=== PATIENT | male | born 1965 | race Caucasian/White ===

== ENCOUNTER 2018-03-12 22:42 | Emergency (ER) | payer MEDICARE ==
[~2018-03-12] VITALS: Ht 172.7 cm; Wt 124.7 kg
[~2018-03-12 22:42] MED LIST: ALBU90OI INH; ALBU90OI6 INH; ALPR.5; ALPR.5 PO; ARIP10 PO; ASPI81EC PO; ATEN100 PO; ATEN50 PO; BUDE6HFA; CEPH500 PO; CIPR500 PO; CLAR500 PO; CLIN300 PO; CLON.5; CLON.5 PO; CLON1 PO; CODGUAEL PO; CYCL10 PO; CYMBALTA; Cleocin HCl150 MG PO; Clonazepam1 MG PO; DIPATR PO; DRON5 PO; DULO60 PO; FAMO20 PO; FAMO40 PO; GUAI600T33 PO; HYDACE25S PR; HYDACE5 PO; HYDGUAL120 PO; HYDPAM25 PO; HYDR1TAB94 PO; IBUP600 PO; JENTADUETO PO; LIDO2L TOP; LITH300C PO; LORA1 PO; MARIJUANA; MULVITA PO; NIFE10 PO; OLAN10 PO; OLAN5 PO; OLEPTRO; ONDA4ODT MM; OSEL75CA PO; OXYACE5T PO; OXYACE7.5T PO; PERP4 PO; PRED20 PO; PROC10 PO; PROCODE120 PO; PROM25 PO; PROM25S PR; Pepcid20 MG PO; Permethrin60 GM; Prozac20 MG PO; RABE20; RANI150 PO; ROSU10TA PO; RXHYDGUAS PO; RXOXYACE PO; RXPROM25 PO; RXSULTRIDS PO; SITA100T2 PO; SULTRIDS PO; SYMBYAX PO; TRAM50 PO; TRAZ100 PO; TRAZ50 PO; TRIBENZOR; [UNRECOGNIZED DRUG - OTHER]; [UNRECOGNIZED DRUG - OTHER]; [UNRECOGNIZED DRUG - OTHER]
[2018-03-13 00:19] LABS: BASOPHILS ABSOLUTE AUTO 0.05 K/mm3 (0.00-0.23); BASOPHILS PERCENT AUTO 1 % (0-2); EOSINOPHILS ABSOLUTE AUTO 0.27 K/mm3 (0.00-0.68); EOSINOPHILS PERCENT AUTO 3 % (0-6); Hematocrit 42.2 % (37.0-53.0); Hemoglobin 13.9 g/dL (13.5-17.5); IMMATURE GRAN ABSOLUTE AUTO 0.04 K/mm3 (0.00-0.10); IMMATURE GRAN PERCENT AUTO 0 % (0-1); LYMPHOCYTES ABSOLUTE AUTO 3.52 K/mm3 (0.84-5.20); LYMPHOCYTES PERCENT AUTO 36 % (21-46); MONOCYTES ABSOLUTE AUTO 1.49 K/mm3 (0.16-1.47); MONOCYTES PERCENT AUTO 15 % (4-13); Mean Corpuscular HGB Conc 32.9 g/dL (31.5-36.5); Mean Corpuscular Volume 97 fL (80-100); Mean Platelet Volume 9.2 fL (9.1-12.4); NEUTROPHILS ABSOLUTE AUTO 4.53 K/mm3 (1.96-9.15); NEUTROPHILS PERCENT AUTO 46 % (41-73); Platelet Count 220 K/mm3 (150-400); RDW Coefficient Variation 12.1 % (11.7-14.2); RDW Standard Deviation 43.5 fL (35.1-46.3); Red Blood Cell Count 4.34 M/mm3 (4.30-5.90)
[2018-03-13] MEDS ORDERED: DOXE25 PO (00:32)
[2018-03-13] MEDS ORDERED: BUPR100 PO (00:32)
[2018-03-13 00:42] LABS: Alanine Aminotransfer (ALT/SGP 28 U/L (12-78); Albumin, Blood 3.1 g/dL (3.4-5.0); Albumin/Globulin Ratio 0.8 (0.8-1.8); Alk Phos 86 U/L (50-136); Anion Gap 8 mmol/L (6-16); Aspartate Aminotrans (AST/SGOT 15 U/L (12-37); Bilirubin, Total 0.2 mg/dL (0.1-1.0); Blood Urea Nitrogen 11 mg/dL (8-24); Bun/Creatinine Ratio 12.9 (12.0-20.0); CO2, Blood 25 mmol/L (21-32); Calcium, Blood 8.8 mg/dL (8.5-10.1); Chloride, Blood 109 mmol/L (98-108); Creatinine, Blood 0.85 mg/dL (0.60-1.20); Globulin, Blood 3.7 g/dL (2.2-4.0); Glomerular Filtration Rate >60 (60-); Glucose, Blood 156 mg/dL (70-99); Sodium, Blood 142 mmol/L (136-145); Total Protein, Blood 6.8 g/dL (6.4-8.2); Troponin I <0.015 ng/mL (0.000-0.040)
[2018-03-13] MEDS ORDERED: Prednisone50 MG PO (00:58)
[2018-03-13] MEDS ORDERED: Zithromax250 MG PO (00:58)
== END 2018-03-13 01:15 | disposition home or self-care (01) ==
LOC: ER 22:42
PROVIDERS: Emergency Medicine
DX: J44.1 Chronic obstructive pulmonary disease with (acute) exacerbation (principal); Z88.8 Allergy status to other drugs, medicaments and biological substances; Z88.6 Allergy status to analgesic agent; Z88.0 Allergy status to penicillin; Z79.899 Other long term (current) drug therapy; I10 Essential (primary) hypertension; F32.9 Major depressive disorder, single episode, unspecified; K21.9 Gastro-esophageal reflux disease without esophagitis
CPT/HCPCS: 36415; 71046; 80053; 84484; 85025; 93005; 93010; 94640; 96374; 99284-25; J2930

== ENCOUNTER 2018-09-23 10:53 | Emergency (ER) | payer MEDICARE ==
[~2018-09-23] VITALS: Ht 172.7 cm; Wt 117.9 kg
[~2018-09-23 10:53] MED LIST changes: +BUPR100 PO; +DOXE25 PO; +Prednisone50 MG PO; +Zithromax250 MG PO
[2018-09-23 11:24] LABS: BASOPHILS ABSOLUTE AUTO 0.06 K/mm3 (0.00-0.23); BASOPHILS PERCENT AUTO 0 % (0-2); EOSINOPHILS PERCENT AUTO 0 % (0-6); Hematocrit 48.1 % (37.0-53.0); Hemoglobin 16.2 g/dL (13.5-17.5); IMMATURE GRAN ABSOLUTE AUTO 0.23 K/mm3 (0.00-0.10); IMMATURE GRAN PERCENT AUTO 2 % (0-1); LYMPHOCYTES ABSOLUTE AUTO 1.47 K/mm3 (0.84-5.20); LYMPHOCYTES PERCENT AUTO 10 % (21-46); MONOCYTES PERCENT AUTO 3 % (4-13); Mean Corpuscular HGB 31.2 pg (26.0-34.0); Mean Corpuscular HGB Conc 33.7 g/dL (31.5-36.5); Mean Corpuscular Volume 93 fL (80-100); Mean Platelet Volume 8.8 fL (9.1-12.4); NEUTROPHILS ABSOLUTE AUTO 12.77 K/mm3 (1.96-9.15); NEUTROPHILS PERCENT AUTO 85 % (41-73); Platelet Count 268 K/mm3 (150-400); RDW Coefficient Variation 11.9 % (11.7-14.2); RDW Standard Deviation 40.9 fL (35.1-46.3); Red Blood Cell Count 5.19 M/mm3 (4.30-5.90); White Blood Cell Count 15.03 K/mm3 (4.00-11.30)
[2018-09-23 11:41] LABS: Alanine Aminotransfer (ALT/SGP 36 U/L (12-78); Albumin, Blood 3.9 g/dL (3.4-5.0); Albumin/Globulin Ratio 0.9 (0.8-1.8); Alk Phos 93 U/L (50-136); Anion Gap 9 mmol/L (6-16); Aspartate Aminotrans (AST/SGOT 15 U/L (12-37); Bilirubin, Total 0.5 mg/dL (0.1-1.0); Blood Urea Nitrogen 10 mg/dL (8-24); Bun/Creatinine Ratio 12.9 (12.0-20.0); CO2, Blood 24 mmol/L (21-32); Calcium, Blood 9.5 mg/dL (8.5-10.1); Chloride, Blood 105 mmol/L (98-108); Creatinine, Blood 0.77 mg/dL (0.60-1.20); Globulin, Blood 4.2 g/dL (2.2-4.0); Glomerular Filtration Rate >60 (60-); Glucose, Blood 208 mg/dL (70-99); Potassium, Blood 4.4 mmol/L (3.5-5.5); Sodium, Blood 138 mmol/L (136-145); Total Protein, Blood 8.1 g/dL (6.4-8.2)
[2018-09-23 12:07] LABS: Lithium <0.20 mmol/L (0.60-1.20)
[2018-09-23 12:43] LABS: Source, Urine Clean Catch
[2018-09-23 12:52] LABS: Bilirubin, Urine Neg (Neg); Blood, Urine 4+ (Neg); Glucose Qualitative, Urine 4+ (Neg); Ketones, Urine 3+ (Neg); Leukocyte Esterase, Urine Neg (Neg); Nitrite, Urine Neg (Neg); Protein, Urine 2+ (Neg); Urobilinogen, Urine NORM (Normal)
[2018-09-23 13:18] LABS: Appearance, Urine Clear (Clear); Color, Urine Yellow (P-Yellow)
[2018-09-23 13:23] LABS: Bacteria Not Seen /hpf; Squamous Epithelial Cells Not Seen /hpf (Few); White Blood Cells, Urine Not Seen /hpf (0-5)
[2018-09-23] MEDS ORDERED: Zofran4 MG PO (14:20)
== END 2018-09-23 14:40 | disposition home or self-care (01) ==
LOC: ER 10:53
PROVIDERS: Emergency Medicine
DX: K29.70 Gastritis, unspecified, without bleeding (principal); Z88.6 Allergy status to analgesic agent; Z88.0 Allergy status to penicillin; Z79.899 Other long term (current) drug therapy; Z79.52 Long term (current) use of systemic steroids; I10 Essential (primary) hypertension; F32.9 Major depressive disorder, single episode, unspecified; K21.9 Gastro-esophageal reflux disease without esophagitis; F20.9 Schizophrenia, unspecified; J44.9 Chronic obstructive pulmonary disease, unspecified
CPT/HCPCS: 36415; 74176; 80053; 80178; 81001; 83690; 85025; 93005; 93010; 96361; 96374; 99284-25; J2060; J7030

== ENCOUNTER → 2018-10-31 | Outpatient (CLI) | payer MEDICARE ==
[~2018-10-31] MED LIST changes: +Zofran4 MG PO
== END | disposition home or self-care (01) ==
LOC: LAB 14:15 → LAB SHORT 14:15
DX: L02.211 Cutaneous abscess of abdominal wall (principal)
CPT/HCPCS: 87070; 87075; 87077; 87186; 87205

== ENCOUNTER 2019-02-06 12:34 | Emergency (ER) | payer MEDICARE, OTHER ==
[~2019-02-06] VITALS: Ht 172.7 cm; Wt 127.0 kg
[2019-02-06 14:14] LABS: BASOPHILS ABSOLUTE AUTO 0.02 K/mm3 (0.00-0.23); BASOPHILS PERCENT AUTO 0 % (0-2); EOSINOPHILS ABSOLUTE AUTO 0.02 K/mm3 (0.00-0.68); EOSINOPHILS PERCENT AUTO 0 % (0-6); Hematocrit 46.5 % (37.0-53.0); Hemoglobin 15.5 g/dL (13.5-17.5); IMMATURE GRAN ABSOLUTE AUTO 0.02 K/mm3 (0.00-0.10); IMMATURE GRAN PERCENT AUTO 0 % (0-1); LYMPHOCYTES ABSOLUTE AUTO 2.13 K/mm3 (0.84-5.20); LYMPHOCYTES PERCENT AUTO 33 % (21-46); MONOCYTES PERCENT AUTO 22 % (4-13); Mean Corpuscular HGB 31.5 pg (26.0-34.0); Mean Corpuscular HGB Conc 33.3 g/dL (31.5-36.5); Mean Corpuscular Volume 95 fL (80-100); Mean Platelet Volume 9.2 fL (9.1-12.4); NEUTROPHILS ABSOLUTE AUTO 2.85 K/mm3 (1.96-9.15); NEUTROPHILS PERCENT AUTO 44 % (41-73); Platelet Count 183 K/mm3 (150-400); RDW Coefficient Variation 12.8 % (11.7-14.2); Red Blood Cell Count 4.92 M/mm3 (4.30-5.90); White Blood Cell Count 6.44 K/mm3 (4.00-11.30)
[2019-02-06 14:39] LABS: Alanine Aminotransfer (ALT/SGP 73 U/L (12-78); Albumin, Blood 3.8 g/dL (3.4-5.0); Alk Phos 96 U/L (50-136); Anion Gap 11 mmol/L (6-16); Aspartate Aminotrans (AST/SGOT 35 U/L (12-37); Bilirubin, Total 0.6 mg/dL (0.1-1.0); Blood Urea Nitrogen 16 mg/dL (8-24); CO2, Blood 23 mmol/L (21-32); Calcium, Blood 9.3 mg/dL (8.5-10.1); Chloride, Blood 104 mmol/L (98-108); Globulin, Blood 3.9 g/dL (2.2-4.0); Glomerular Filtration Rate >60 (60-); Glucose, Blood 221 mg/dL (70-99); Sodium, Blood 138 mmol/L (136-145); Total Protein, Blood 7.7 g/dL (6.4-8.2)
[2019-02-06] MEDS ORDERED: ALBU2.5V5 NEB (16:05)
[2019-02-06] MEDS ORDERED: Zithromax250 MG PO (16:05)
== END 2019-02-06 16:18 | disposition home or self-care (01) ==
LOC: ER 12:34
PROVIDERS: Physician Assistant
DX: J44.0 Chronic obstructive pulmonary disease with (acute) lower respiratory infection (principal); J20.9 Acute bronchitis, unspecified; J44.1 Chronic obstructive pulmonary disease with (acute) exacerbation; I10 Essential (primary) hypertension; F32.9 Major depressive disorder, single episode, unspecified; K21.9 Gastro-esophageal reflux disease without esophagitis; Z88.0 Allergy status to penicillin; Z88.6 Allergy status to analgesic agent; Z79.899 Other long term (current) drug therapy; Z79.52 Long term (current) use of systemic steroids
CPT/HCPCS: 36415; 71046; 80053; 84484; 85025; 93005; 93010; 94640; 94644; 99284-25

== ENCOUNTER 2019-08-01 06:07 | Emergency (ER) | payer OTHER ==
[~2019-08-01] VITALS: Ht 172.7 cm; Wt 120.2 kg
[~2019-08-01 06:07] MED LIST changes: +ALBU2.5V5 NEB
[2019-08-01] MEDS ORDERED: ATEN50 PO (06:42)
[2019-08-01] MEDS ORDERED: Lisinopril2.5 MG (06:42)
[2019-08-01] MEDS ORDERED: NEURONTIN300 MG PO (06:43)
[2019-08-01 07:19] LABS: BASOPHILS ABSOLUTE AUTO 0.05 K/mm3 (0.00-0.23); BASOPHILS PERCENT AUTO 1 % (0-2); EOSINOPHILS PERCENT AUTO 2 % (0-6); Hematocrit 45.9 % (37.0-53.0); Hemoglobin 14.8 g/dL (13.5-17.5); IMMATURE GRAN ABSOLUTE AUTO 0.07 K/mm3 (0.00-0.10); IMMATURE GRAN PERCENT AUTO 1 % (0-1); LYMPHOCYTES ABSOLUTE AUTO 2.55 K/mm3 (0.84-5.20); LYMPHOCYTES PERCENT AUTO 23 % (21-46); MONOCYTES ABSOLUTE AUTO 0.93 K/mm3 (0.16-1.47); MONOCYTES PERCENT AUTO 8 % (4-13); Mean Corpuscular HGB 31.4 pg (26.0-34.0); Mean Corpuscular HGB Conc 32.2 g/dL (31.5-36.5); Mean Corpuscular Volume 97 fL (80-100); Mean Platelet Volume 8.8 fL (9.1-12.4); NEUTROPHILS ABSOLUTE AUTO 7.22 K/mm3 (1.96-9.15); NEUTROPHILS PERCENT AUTO 66 % (41-73); Platelet Count 223 K/mm3 (150-400); RDW Standard Deviation 46.4 fL (35.1-46.3); Red Blood Cell Count 4.72 M/mm3 (4.30-5.90); White Blood Cell Count 11.02 K/mm3 (4.00-11.30)
[2019-08-01 07:33] LABS: Source, Urine Clean Catch
[2019-08-01 07:38] LABS: Bilirubin, Urine Neg (Neg); Blood, Urine 2+ (Neg); Glucose Qualitative, Urine 3+ (Neg); Ketones, Urine Neg (Neg); Leukocyte Esterase, Urine Neg (Neg); Nitrite, Urine Neg (Neg); Protein, Urine 1+ (Neg); Specific Gravity, Urine 1.025 (1.003-1.022); Urobilinogen, Urine NORM (Normal)
[2019-08-01 07:38] LABS: Alanine Aminotransfer (ALT/SGP 40 U/L (12-78); Albumin, Blood 3.4 g/dL (3.4-5.0); Alk Phos 71 U/L (50-136); Anion Gap 5 mmol/L (6-16); Aspartate Aminotrans (AST/SGOT 17 U/L (12-37); Bilirubin, Total 0.3 mg/dL (0.1-1.0); Blood Urea Nitrogen 14 mg/dL (8-24); Bun/Creatinine Ratio 17.6 (12.0-20.0); CO2, Blood 27 mmol/L (21-32); Calcium, Blood 8.2 mg/dL (8.5-10.1); Chloride, Blood 109 mmol/L (98-108); Globulin, Blood 3.3 g/dL (2.2-4.0); Glomerular Filtration Rate >60 (60-); Glucose, Blood 195 mg/dL (70-99); Potassium, Blood 3.9 mmol/L (3.5-5.5); Sodium, Blood 141 mmol/L (136-145); Total Protein, Blood 6.7 g/dL (6.4-8.2)
[2019-08-01 07:53] LABS: Appearance, Urine Clear (Clear); Color, Urine Yellow (P-Yellow)
[2019-08-01 07:56] LABS: Bacteria Few /hpf; Red Blood Cells, Urine 0-2 /hpf (0-2); Squamous Epithelial Cells Rare /hpf (Few)
[2019-08-01 07:57] LABS: Mucus Mod (0-Heavy)
[2019-08-01 08:10] LABS: Lithium <0.20 mmol/L (0.60-1.20)
== END 2019-08-01 09:01 | disposition home or self-care (01) ==
LOC: ER 06:07
PROVIDERS: Emergency Medicine
DX: R10.9 Unspecified abdominal pain (principal); I10 Essential (primary) hypertension; K21.9 Gastro-esophageal reflux disease without esophagitis; F32.9 Major depressive disorder, single episode, unspecified; F25.9 Schizoaffective disorder, unspecified; Z88.6 Allergy status to analgesic agent; Z88.0 Allergy status to penicillin; Z79.899 Other long term (current) drug therapy
CPT/HCPCS: 36415; 74176; 80053; 80178; 81001; 85025; 96361; 96374; 99283-25; J1885; J7030

== ENCOUNTER 2020-04-04 05:39 | Inpatient (IN) | payer OTHER, SELFPAY ==
[~2020-04-04] VITALS: Ht 172.7 cm; Wt 117.2 kg
[~2020-04-04 05:39] MED LIST changes: +LISI20 PO; +NEURONTIN300 MG PO
[2020-04-04 07:06] LABS: Source, Urine Clean Catch
[2020-04-04 07:12] LABS: Bilirubin, Urine Neg (Neg); Blood, Urine 2+ (Neg); Glucose Qualitative, Urine 4+ (Neg); Ketones, Urine Neg (Neg); Leukocyte Esterase, Urine Neg (Neg); Nitrite, Urine Neg (Neg); Protein, Urine Neg (Neg); Urobilinogen, Urine NORM (Normal)
[2020-04-04 07:18] LABS: BASOPHILS ABSOLUTE AUTO 0.06 K/mm3 (0.00-0.23); BASOPHILS PERCENT AUTO 0 % (0-2); EOSINOPHILS ABSOLUTE AUTO 0.36 K/mm3 (0.00-0.68); EOSINOPHILS PERCENT AUTO 3 % (0-6); Hematocrit 47.2 % (37.0-53.0); IMMATURE GRAN ABSOLUTE AUTO 0.05 K/mm3 (0.00-0.10); IMMATURE GRAN PERCENT AUTO 0 % (0-1); LYMPHOCYTES ABSOLUTE AUTO 2.11 K/mm3 (0.84-5.20); LYMPHOCYTES PERCENT AUTO 16 % (21-46); MONOCYTES ABSOLUTE AUTO 1.05 K/mm3 (0.16-1.47); MONOCYTES PERCENT AUTO 8 % (4-13); Mean Corpuscular HGB 31.6 pg (26.0-34.0); Mean Corpuscular HGB Conc 33.9 g/dL (31.5-36.5); Mean Corpuscular Volume 93 fL (80-100); NEUTROPHILS ABSOLUTE AUTO 9.81 K/mm3 (1.96-9.15); NEUTROPHILS PERCENT AUTO 73 % (41-73); Platelet Count 231 K/mm3 (150-400); RDW Standard Deviation 41.3 fL (35.1-46.3); Red Blood Cell Count 5.06 M/mm3 (4.30-5.90); White Blood Cell Count 13.44 K/mm3 (4.00-11.30)
[2020-04-04 07:20] LABS: Appearance, Urine Clear (Clear); Color, Urine Yellow (P-Yellow)
[2020-04-04 07:22] LABS: Bacteria Rare /hpf; Red Blood Cells, Urine 0-2 /hpf (0-2); Squamous Epithelial Cells Not Seen /hpf (Few); White Blood Cells, Urine Rare /hpf (0-5)
[2020-04-04 07:34] LABS: International Normalized Ratio 0.93
[2020-04-04 07:37] LABS: Alanine Aminotransfer (ALT/SGP 30 U/L (12-78); Albumin, Blood 3.4 g/dL (3.4-5.0); Albumin/Globulin Ratio 0.8 (0.8-1.8); Alk Phos 98 U/L (50-136); Anion Gap 4 mmol/L (6-16); Aspartate Aminotrans (AST/SGOT 12 U/L (12-37); Bilirubin, Total 0.4 mg/dL (0.1-1.0); Blood Urea Nitrogen 11 mg/dL (8-24); Bun/Creatinine Ratio 15.1 (12.0-20.0); CO2, Blood 31 mmol/L (21-32); Calcium, Blood 9.2 mg/dL (8.5-10.1); Chloride, Blood 102 mmol/L (98-108); Creatinine, Blood 0.73 mg/dL (0.60-1.20); Globulin, Blood 4.2 g/dL (2.2-4.0); Glomerular Filtration Rate >60 (60-); Glucose, Blood 340 mg/dL (70-99); Potassium, Blood 4.2 mmol/L (3.5-5.5); Sodium, Blood 137 mmol/L (136-145); Total Protein, Blood 7.6 g/dL (6.4-8.2)
[2020-04-04] MEDS ORDERED: ABILIFY MYCITE10 MG PO (11:48)
[2020-04-04] MEDS ORDERED: ATOR20 PO (11:50)
[2020-04-04] MEDS ORDERED: GLIP5ER PO (11:54)
[2020-04-04] MEDS ORDERED: METF500 PO (11:56)
[2020-04-04] MEDS ORDERED: OMEP20ER PO (11:57)
[2020-04-04] MEDS ORDERED: TAMS.4ER PO (11:57)
[2020-04-04] MEDS ORDERED: Trazodone HCl300 MG PO (11:58)
[2020-04-04] MEDS ORDERED: VIIBRYD40 MG PO (12:00)
--- NOTE | 2020-04-04 17:00 | NUR ---
PATIENT IS ALERT AND ORIENTED AND COOPERATIVE WITH CARE. C/O PERIANAL PAIN, TREATED PER EMAR. NO COMPLAINTS OF NAUSEA OR VOMITTING. PATIENT HAS TOLERATED A CLEAR LIQUID DIET WELL. GI HAS BEEN CONSULTED. PATIENT IS INDEPENDENT IN HIS ROOM. LIVES HOME ALONE. WILL CONTINUE TO MONITOR
[2020-04-05 05:21] LABS: BASOPHILS ABSOLUTE AUTO 0.08 K/mm3 (0.00-0.23); BASOPHILS PERCENT AUTO 1 % (0-2); EOSINOPHILS ABSOLUTE AUTO 0.37 K/mm3 (0.00-0.68); EOSINOPHILS PERCENT AUTO 3 % (0-6); Hematocrit 44.8 % (37.0-53.0); Hemoglobin 14.9 g/dL (13.5-17.5); IMMATURE GRAN ABSOLUTE AUTO 0.06 K/mm3 (0.00-0.10); IMMATURE GRAN PERCENT AUTO 1 % (0-1); LYMPHOCYTES ABSOLUTE AUTO 2.16 K/mm3 (0.84-5.20); LYMPHOCYTES PERCENT AUTO 17 % (21-46); MONOCYTES ABSOLUTE AUTO 1.28 K/mm3 (0.16-1.47); MONOCYTES PERCENT AUTO 10 % (4-13); Mean Corpuscular HGB 30.7 pg (26.0-34.0); Mean Corpuscular HGB Conc 33.3 g/dL (31.5-36.5); Mean Corpuscular Volume 92 fL (80-100); Mean Platelet Volume 8.7 fL (9.1-12.4); NEUTROPHILS ABSOLUTE AUTO 9.17 K/mm3 (1.96-9.15); NEUTROPHILS PERCENT AUTO 70 % (41-73); Platelet Count 241 K/mm3 (150-400); RDW Coefficient Variation 12.2 % (11.7-14.2); RDW Standard Deviation 41.3 fL (35.1-46.3); Red Blood Cell Count 4.85 M/mm3 (4.30-5.90); White Blood Cell Count 13.12 K/mm3 (4.00-11.30)
[2020-04-05 05:46] LABS: Anion Gap 6 mmol/L (6-16); Blood Urea Nitrogen 7 mg/dL (8-24); Bun/Creatinine Ratio 10.3 (12.0-20.0); CO2, Blood 29 mmol/L (21-32); Calcium, Blood 8.7 mg/dL (8.5-10.1); Chloride, Blood 102 mmol/L (98-108); Creatinine, Blood 0.68 mg/dL (0.60-1.20); Glomerular Filtration Rate >60 (60-); Glucose, Blood 268 mg/dL (70-99); Potassium, Blood 3.9 mmol/L (3.5-5.5); Sodium, Blood 137 mmol/L (136-145)
--- NOTE | 2020-04-05 06:41 | NUR ---
SHIFT SUMMARY PT IS A 54 Y/O MALE, ADMITTED FOR PROCTOCOLITIS AND RECTAL ABSCESS. PT IS A&O X 4, INDEPENDENT TO THE BATHROOM. PT WAS MEDICATED 3X FOR PAIN WITH PRN IV DILAUDID. NO C/O NAUSEA OR SOB. PT RECEIVED NS @ 100 ML/HR FOR 1 BAG. VITAL SIGNS STABLE. PT SLEPT OFF AND ON DURING THE NIGHT. NO ACUTE CHANGES IN PT CONDITION NOTED. WILL CONTINUE TO MONITOR AND TREAT PER EMAR UNTIL HAND OFF TO DAY SHIFT RN.
--- NOTE | 2020-04-05 17:11 | NUR ---
SHIFT SUMMARY PATIENT MEDICATED X3 FOR PAIN. DENIES NAUSEA AND SHORTNESS OF BREATH. DIET ADVANCED TO ADA, TOLERATING WELL. UP SBA IN ROOM. PLEASANT AND COOPERATIVE WITH CARE.
[2020-04-05 22:58] LABS: Influenza A, PCR Negative (NEGATIVE); Influenza B, PCR Negative (NEGATIVE); Resp Syncytial Virus, PCR Negative (NEGATIVE); SARS-Cov-2 (COVID-19) PCR, MMC Negative (NEGATIVE)
[2020-04-06 05:06] LABS: BASOPHILS ABSOLUTE AUTO 0.06 K/mm3 (0.00-0.23); BASOPHILS PERCENT AUTO 1 % (0-2); EOSINOPHILS ABSOLUTE AUTO 0.39 K/mm3 (0.00-0.68); EOSINOPHILS PERCENT AUTO 6 % (0-6); Hemoglobin 14.7 g/dL (13.5-17.5); IMMATURE GRAN ABSOLUTE AUTO 0.06 K/mm3 (0.00-0.10); IMMATURE GRAN PERCENT AUTO 1 % (0-1); LYMPHOCYTES ABSOLUTE AUTO 2.12 K/mm3 (0.84-5.20); LYMPHOCYTES PERCENT AUTO 30 % (21-46); MONOCYTES ABSOLUTE AUTO 0.84 K/mm3 (0.16-1.47); MONOCYTES PERCENT AUTO 12 % (4-13); Mean Corpuscular HGB 31.1 pg (26.0-34.0); Mean Corpuscular HGB Conc 33.4 g/dL (31.5-36.5); Mean Corpuscular Volume 93 fL (80-100); Mean Platelet Volume 8.8 fL (9.1-12.4); NEUTROPHILS ABSOLUTE AUTO 3.64 K/mm3 (1.96-9.15); NEUTROPHILS PERCENT AUTO 51 % (41-73); Platelet Count 215 K/mm3 (150-400); RDW Coefficient Variation 12.1 % (11.7-14.2); RDW Standard Deviation 41.6 fL (35.1-46.3); Red Blood Cell Count 4.72 M/mm3 (4.30-5.90); White Blood Cell Count 7.11 K/mm3 (4.00-11.30)
[2020-04-06 05:33] LABS: Anion Gap 6 mmol/L (6-16); Blood Urea Nitrogen 10 mg/dL (8-24); Bun/Creatinine Ratio 15.8 (12.0-20.0); CO2, Blood 31 mmol/L (21-32); Calcium, Blood 8.9 mg/dL (8.5-10.1); Chloride, Blood 103 mmol/L (98-108); Creatinine, Blood 0.63 mg/dL (0.60-1.20); Glomerular Filtration Rate >60 (60-); Glucose, Blood 275 mg/dL (70-99); Potassium, Blood 3.9 mmol/L (3.5-5.5); Sodium, Blood 140 mmol/L (136-145)
--- NOTE | 2020-04-06 06:42 | NUR ---
SHIFT SUMMARY PT IS A 54 Y/O MALE, ADMITTED FOR PROCTOCOLITIS AND COLORECTAL ABSCESS. PT IS A&O X 3, WITH VERY LABILE EMOTIONS. PT WAS IRRITABLE AT THE START OF SHIFT R/T HIS PAIN MEDICATIONS, AND THEN TEARFUL AND ANXIOUS THE REST OF THE NIGHT. PT HAS BEEN NPO SINCE MIDNIGHT IN PREP FOR A SURGICAL PROCEDURE TODAY. HE WAS MEDICATED FOR PAIN WITH PRN OXYCODONE AND IV DILAUDID. NO C/O NAUSEA OR SOB. VITAL SIGNS STABLE. COVID-19 TEST COMPLETED AND NEGATIVE. NO ACUTE CHANGES IN PT CONDITION NOTED DURING THE NIGHT. WILL CONTINUE TO MONITOR AND TREAT PER EMAR UNTIL HAND OFF TO DAY SHIFT RN.
--- NOTE | 2020-04-06 09:52 | NUR ---
04/06/20 0952 Carly Urbano History, Chart, Medications and Allergies reviewed before start of procedure.MAC CASE WITH DR. JONES.PT CODED RESP DURING PROCEDURE. SEE MAC CASE AND CODE SHEET. TX TO ICU POST PROCEDURE.
--- NOTE | 2020-04-06 10:45 | NUR ---
PT ARRIVAL... PT ARRIVED ON UNIT AT 1010, PT IS S/P RESPIRATORY AND CARDIAC ARREST IN THE OR DURING A FLEX SIG. PT ARRIVES ON UNIT EXTUBATED, AWAKE AND ORIENTEDx3 BUT SLEEPY. VS STABLE ON ARRIVAL. PT HAS 22G IN HIS RIGHT HAND RUNNING LR. PT IS IN SINUS TACH IN THE 100'S-110'S, BP STABLE. NO EDEMA NOTED ON ASSESSMENT, PT DENIES ANY CHEST PAIN/PRESSURE, N/V OR SOB AT THIS TIME. PT WAS TAKEN OFF ON NRB MASK AND PLACED ON 2L WHICH WITH O2 SATS >95%. L/S CLEAR T/O. BT PRESENT AND HYPOACTIVE, ABD IS SOFT AND TENDER TO PALP. PT IS PLEASENT AND COOPERATIVE BUT TEARFUL WITH CARE. WILL CONTINUE TO MONITOR.
--- NOTE | 2020-04-06 10:52 | NUR ---
TRANSFER TO ICU PATIENT TRANSFERED TO ICU AFTER CODE IN DAY SURGERY. REPORT GIVEN TO FACULTY RESEARCH PHYSICIANOMER MALLOY.
--- NOTE | 2020-04-06 11:43 | NUR ---
ECHO IN PROGRESS. THIS RN CHECK PT CBG FOR PRIMARY RN GAMA. CBG 258. PT VERBALIZING THAT HE HAS NOT EATEN IN 4 DAYS AND STATES THAT HE FEELS THIS IS THE REASON HE HAD "HEART PROBLEMS." PT APPEARS VERY ANXIOUS. HE IS TEARFUL. PT INITIALLY REFUSING INSULIN COVERAGE FOR CBG. RN QUESTIONED THE REASON THAT HE DOES NOT WANT THE INSULIN. PT STATES "I'D RATHER THAN BE STARTED ON INSULIN. IF I START IT I WON'T BE ABLE TO EVER STOP TAKING IT!" RN EXPLAINED THAT THIS IS NOT NECESSARILY TRUE. RN EXPLAINE THAT WE ARE MONITORING ALL OF HIS VITAL SIGNS AND LABS INCLUDING HIS BLOOD SUGAR AND THAT IN THE ICU WE LIKE TO GET HIS BLUCOSE BETWEEN 80-180. PT STATES "GO AHEAD AND GIVE IT TO ME THEN. IT'S NOT GOING TO MAKE A DIFFERENCE NOW. I MEAN, I CAME IN FOR A COLONOSCOPY AND THEN I ."
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
--- NOTE | 2020-04-06 16:12 | NUR ---
PT TRANSFER PT TRANSFER TO MEDICAL FLOOR, REPORT CALLED TO MED FLOOR OMER MOE. ALL OF PT'S BELONGINGS PACKED AND SENT WITH THE PT. ALL OF PT'S MEDS SENT WITH THE PT. PT TRANSFERED VIA W/C. PT'S FAMILY UPDATED.
--- NOTE | 2020-04-06 17:34 | NUR ---
Shift Summary Received report from [facility] ICU-RN. Patient arrived to unit via w/c approx. 1615. A/Ox4, cooperative and pleasant. SBA in room. RA, Tele: SR 70's. Medicated for 8/10 perianal pain without much effect. Denies nausea, vomiting, diarrhea. Calls appropriately for needs. No acute distress. WCTM.
--- NOTE | 2020-04-06 19:17 | NUR ---
AWAKE. AFFECT TEARFUL, STATED HE "ALMOST TODAY" - REFERRING TO APPARENT EPISODE DURING PROCEDURE (SEE DOCUMENTATION OF SAID PROCEDURE). REASSURANCE GIVEN. FEELINGS ACKNOWLEDGED. ENCOURAGED TO USE CALL LIGHT - WHICH WAS IN REACH. WILL MONITOR
--- NOTE | 2020-04-06 20:13 | NUR ---
ATTEMPTED TO DO EKG, PT STATES, "THEY MUST HAVE SCREWED MY HEART UP" I LET HIM KNOW THAT AN EKG IS TO EVALUATE HIS HEART, THAT IT DID NOT MEAN THAT IT ANYTHING WAS WRONG WITH IT RIGHT NOW. PT REPLIED "YOU ARE JUST DOING IT TO MAKE IT LOOK BAD" I LET HIM KNOW THAT I WAS HERE TO TAKE CARE OF HIM, AND THAT IT WAS NOT TO MAKE ANYTHING LOOK BAD. PT REPLIED "I AM GOING TO HIRE A DUST BOX WORKER, JUST SO YOU KNOW" I LET HIME KNOW THAT THE LEGAL DEPARTMENT IS NOT MY DEPARTMENT, THAT I AM JUST HERE TO TAKE CARE OF HIM. I THEN ASKED THE PT IF HE WANTED TO EKG AND LET HIM KNOW HE DID NOT HAVE TO HAVE ONE IF HE DID NOT WANT ONE. PT REPLIED "I DON'T WANT ONE, YOU ARE JUST TRYING TO KILL ME." I LET HIM KNOW THAT WE WERE NOT TRYING TO KILL HIM, THAT WE ARE HERE TO TAKE CARE OF HIM. I ASKED HIM IF HE WOULD LIKE TO SPEAK WITH THE PT ADVOCATE, PT REPLIED "I WANT TO SPEAK WITH SOMEONE, YOU GUYS ARE TRYING TO KILL ME." I LET HIM KNOW THAT WE ARE NOT TRYING TO KILL HIM, WE ARE HERE TO TAKE CARE OF HIM, AND THAT I WOULD PUT AN ORDER IN FOR THE PT ADVOCATE TO COME SPEAK WITH HIM.
--- NOTE | 2020-04-06 22:11 | NUR ---
SPOKE WITH DR CASTELLANO RE PT'S COMMENTS ABOUT HIS DAUGHTER AND WANTING TO LEAVE AND THE PT'S HISTORY OF DEPRESSION AND SCHIZOEFFECTIVE DISORDER AND THAT AT THIS TIME, PER THE PRIMARY RN'S AND MYSELF'S OBERVATION THE PT APPEARS AAO X 4. GOT ORDERS FOR PSYCHIATRY CONSULT AND ATIVAN IF THE PT WISHES SOMETHING FOR ANXIETY.
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
--- NOTE | 2020-04-07 01:00 | NUR ---
PT DECIDED TO STAY TO "GET HELP". HE APOLOGIZED FOR HIS AGGRESIVE ACTIONS, TEARY EYED. DILAUDID IV FOR PAIN AND PO ATIVAN FOR ANXIETY GIVEN. NOW COMPLIANT WITH TREATMENT. PT WAS FALLING ASLEEP, HE SAID "PLEASE DONT GIVE UP ON ME..." REASSURANCE GIVEN, CALL LIGHT IN REACH. ABX INFUSING
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
--- NOTE | 2020-04-07 03:26 | NUR ---
0237 PT WOKE UP, ACCIDENTALLY PULLED IV OUT. PT VERY TEARFUL RE DAUGHTER'S , WORRIES ABOUT STAFF THINKING HE "NEEDS A UA TO CHECK FOR DOPE" OR THAT WE THINK HE IS A "FREAK", TEARFUL ABOUT "ALMOST DYING". ASKED PT IF HE WOULD LIKE SOME MORE MEDICATION FOR ANXIETY, PT REPORTS YES, ASKED PT ABOUT IS PAIN LEVEL, PT REPORTS HE IS HAVING A LOT OF PAIN. GAVE PT ATIVAN AND NORCO, WILL EVAL FOR EFFECT. WILL RESART IV CLOSER TO TIME OF NEXT ANTIBIOTIC PT WILL MOST LIKELY WIND UP PULLING OUT THE NEXT IV WELL. WILL UPDATE PRIMARY RN. CALL LIGHT IS IN REACH.
[2020-04-07 05:41] LABS: BASOPHILS ABSOLUTE AUTO 0.05 K/mm3 (0.00-0.23); BASOPHILS PERCENT AUTO 1 % (0-2); EOSINOPHILS PERCENT AUTO 5 % (0-6); Hematocrit 42.6 % (37.0-53.0); Hemoglobin 13.8 g/dL (13.5-17.5); IMMATURE GRAN ABSOLUTE AUTO 0.09 K/mm3 (0.00-0.10); IMMATURE GRAN PERCENT AUTO 1 % (0-1); LYMPHOCYTES ABSOLUTE AUTO 2.33 K/mm3 (0.84-5.20); LYMPHOCYTES PERCENT AUTO 27 % (21-46); MONOCYTES ABSOLUTE AUTO 1.05 K/mm3 (0.16-1.47); MONOCYTES PERCENT AUTO 12 % (4-13); Mean Corpuscular HGB 30.7 pg (26.0-34.0); Mean Corpuscular HGB Conc 32.4 g/dL (31.5-36.5); Mean Corpuscular Volume 95 fL (80-100); Mean Platelet Volume 8.9 fL (9.1-12.4); NEUTROPHILS ABSOLUTE AUTO 4.82 K/mm3 (1.96-9.15); NEUTROPHILS PERCENT AUTO 55 % (41-73); Platelet Count 233 K/mm3 (150-400); RDW Coefficient Variation 12.4 % (11.7-14.2); Red Blood Cell Count 4.49 M/mm3 (4.30-5.90); White Blood Cell Count 8.74 K/mm3 (4.00-11.30)
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
--- NOTE | 2020-04-07 14:30 | NUR ---
permission to provide care student nurse kayy mckenzie recieved permission to provide care on 04/07/20
--- NOTE | 2020-04-07 20:42 | NUR ---
AFFECT REMAINS LABILE. POUTING RE WANTING MED TELE OFF. NURSE DISCUSSED REASON BEHIND THE MED TELE. PT AGREES TO KEEP IT ON FOR THE NOGHT BUT WANTS IT OFF IN THE AM. WILL PASS THIS ON TO AM NURSE. IV ANTIBIOTIC INFUSING. TOLERATES HS MEDS PO. CALL LIGHT IN REACH
--- NOTE | 2020-04-07 22:04 | NUR ---
ANGRY AND UPSET RE TELE MONITORING, DEMANDED THAT IT BE REMOVED. NURSE EXPLAINED RE RATIONALE FOR IT, BUT STILL ADAMANT OF ITS REMOVAL, EDGE BANDER OPERATOR CONSULTED. ALTHOUGH SHE WANTED HIM TO KEEP IT ON, SHE SAID IF HE REFUSED IT, WE CANT FORCE IT ON HIM. MED TELE REMOVED. MANAGER OF ENTERPRISE NOTIFIED. CALL LIGHT IN REACH
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
[2020-04-08 04:47] LABS: BASOPHILS ABSOLUTE AUTO 0.06 K/mm3 (0.00-0.23); BASOPHILS PERCENT AUTO 1 % (0-2); EOSINOPHILS ABSOLUTE AUTO 0.35 K/mm3 (0.00-0.68); EOSINOPHILS PERCENT AUTO 4 % (0-6); Hematocrit 43.7 % (37.0-53.0); Hemoglobin 14.4 g/dL (13.5-17.5); IMMATURE GRAN ABSOLUTE AUTO 0.09 K/mm3 (0.00-0.10); IMMATURE GRAN PERCENT AUTO 1 % (0-1); LYMPHOCYTES ABSOLUTE AUTO 2.11 K/mm3 (0.84-5.20); LYMPHOCYTES PERCENT AUTO 23 % (21-46); MONOCYTES ABSOLUTE AUTO 0.92 K/mm3 (0.16-1.47); MONOCYTES PERCENT AUTO 10 % (4-13); Mean Corpuscular HGB 30.8 pg (26.0-34.0); Mean Corpuscular Volume 93 fL (80-100); Mean Platelet Volume 8.8 fL (9.1-12.4); NEUTROPHILS ABSOLUTE AUTO 5.84 K/mm3 (1.96-9.15); NEUTROPHILS PERCENT AUTO 62 % (41-73); Platelet Count 234 K/mm3 (150-400); RDW Coefficient Variation 12.1 % (11.7-14.2); RDW Standard Deviation 41.2 fL (35.1-46.3); Red Blood Cell Count 4.68 M/mm3 (4.30-5.90); White Blood Cell Count 9.37 K/mm3 (4.00-11.30)
[2020-04-08 05:12] LABS: Anion Gap 5 mmol/L (6-16); Blood Urea Nitrogen 14 mg/dL (8-24); Bun/Creatinine Ratio 19.9 (12.0-20.0); CO2, Blood 29 mmol/L (21-32); Calcium, Blood 9.1 mg/dL (8.5-10.1); Chloride, Blood 104 mmol/L (98-108); Creatinine, Blood 0.71 mg/dL (0.60-1.20); Glomerular Filtration Rate >60 (60-); Glucose, Blood 258 mg/dL (70-99); Potassium, Blood 4.1 mmol/L (3.5-5.5); Sodium, Blood 138 mmol/L (136-145)
--- NOTE | 2020-04-08 18:00 | NUR ---
PT TRANSFERRED VIA W/C TO ROOM 353, REPORT GIVEN TO RECEIVING RN. BELONGINGS PACKED AND TRANSFERRED TO NEW ROOM.
--- NOTE | 2020-04-08 18:25 | NUR ---
TRANSFERRED TO 353 AT ABOUT 1800. ALERT TO PERSON ,PLACE, FAMILY AND EVENT. DOES NOT KNOW DATE, BUT KNOWS WHERE TO LOOK FOR IT. LUNGS CLEAR. UNABLE TO SEE AND REDNESS/SWELLING TO ABSCESS AREA WHICH IS SUPPOSE TO BE AT BASE OF PENIS. PATIENT REASSURED THAT PER CT LOOKS LIKE ITS GETTING SMALLER, SO GOING IN RIGHT DIRECTION. DURING THIS RN INITIAL EVAL PATIENT DENIES PAIN AT GROIN OR RECTAL AREA OR DURING MICTURATION OR WHEN HAVING A B.M. BEFORE RN LEAVES ROOM PATIENT ASKS ABOUT WHEN HE IS DUE FOR HIS PAIN MEDS. WHEN QUERRIED ABOUT PAIN "I DO HAVE PAIN IN MY PENIS." ADVISED HE GOT PAIN MEDS 5 MINUTES BEFORE ARRIVING HERE. ON R.A. NO TELE. POWERGLIDE IV RT UPPER ARM. ORIENTED PATIENT TO ROOM AND ADVISED ABOUT SOME OF THE FOOD WE MAY HAVE IN OUR PANTRY IF HUNGRY AT NIGHT. PER KARSON PEREZ CANCELLED ATIVAN AND ORDERED VISTAREL AND ONCE A DAY CLONIPINE. AT THIS TIME PATIENT CALM, COOPERATIVE. TM
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
--- NOTE | 2020-04-08 22:31 | NUR ---
PATIENT OOB AGITATED REPORTING HE USED THE CALL LIGHT BUT NO ONE CAME. WHEN HE ACTIVATED IT CAME THROUGH TO EXECUTIVE COMMUNITY PLANNING. SBA TO BR. YELLING - SCREAMING IN BR. REPORTS HE WANTS TO LEAVE ROOM. CHARGE NURSE BABAK NOTIFIED. WILL CONTINUE TO MONITOR.
--- NOTE | 2020-04-08 22:52 | NUR ---
PATIENT PARONOID REPORTING HE IS HAVING COCKROACH IN HIS ROOM AND CRAWLING OVER HIM. PATIENT TOLD THERE ARE NONE IN HIS ROOM. PATIENT CONTINUES TO BE AGITATED. PO DILAUDID 4MG GIVEN FOR PAIN. IV ABX INFUSING. CALL LIGHT IN REACH.
--- NOTE | 2020-04-08 23:18 | NUR ---
RT REPORTED PATIENT REFUSED CPAP AFTER HE INITIALLY WANTED TO WEAR IT.
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
--- NOTE | 2020-04-09 11:29 | NUR ---
Spiritual care visit conducted. Patient is sitting on EOB and alert. Patient states that he has no recollection of or 45 minute discussion 2 days ago but somehow therapeutic alliance is already established. Patient tells me personal information about the thoughts that led to his suicide attempt that seem to center around low self-worth, anger and despair. We unpack what those words mean to him and why. We also discuss the "spiritual parsons" patient feels he is in and his spiritual distress. We explore sources of meaning and value, the theological and intrapersonal causes of his anger and sources of hope. I normalize patient's experience, reinforce helpful attitdues and provide inspirational reading material, spiritual guidance, anxiety containment and prayer. Patient responds well and shows signs of renewed hope and restored mirella. I will continue to remain available to patient and family.
[2020-04-09] MEDS ORDERED: SENN187 PO (11:34)
[2020-04-09] MEDS ORDERED: AMOCLA875 PO (11:34)
[2020-04-09] MEDS ORDERED: VISBIOME 112.51 EACH PO (11:34)
[2020-04-09] MEDS ORDERED: OXYC10ER PO (11:35)
--- NOTE | 2020-04-09 11:53 | NUR ---
DISCHARGE INSTRUCTIONS REVIEWED WITH PT. POWERGLIDE DC'D INTACT. RX FAXED TO [facility] AND HARD SCRIPT FOR OXYCONTIN GIVEN TO PT. SPOKE WITH [facility] AND FOLLOW UP APPT MADE FOR SATURDAY 04/15, SHANNA TO CALL PT WITH A FOLLOW UP APPT WITH PCP. PT REFUSED TO STAY FOR LUNCH OR GET COVERAGE WITH INSULIN FOR GLUCOSE. IV ANTIIOTICS GIVEN PRIOR TO DISCHARGE. PT DC'D HOME AT 1151 ESCORTED OUT VIA W/C TO D/C HOME WITH FRIEND.
== END 2020-04-09 11:57 | disposition home or self-care (01) | DRG 393 ==
LOC: ER 05:39 → MEDS 09:58 → ICUE 04-06 09:50 → MEDS 04-06 16:16
PROVIDERS: Emergency Medicine; Family Medicine; Internal Medicine Gastroenterology; ADMIT Internal Medicine
PROC: 3E02340 Introduction of Influenza Vaccine into Muscle, Percutaneous Approach (ICD-10-PCS; 2020-04-04)
PROC: 0DBN8ZX Excision of Sigmoid Colon, Via Natural or Artificial Opening Endoscopic, Diagnostic (ICD-10-PCS; 2020-04-06)
PROC: 0DBP8ZX Excision of Rectum, Via Natural or Artificial Opening Endoscopic, Diagnostic (ICD-10-PCS; principal; 2020-04-06 10:00)
DX: K61.1 Rectal abscess (principal); I46.8 Cardiac arrest due to other underlying condition; Z20.822 Contact with and (suspected) exposure to COVID-19; T41.45XA Adverse effect of unspecified anesthetic, initial encounter; K57.30 Diverticulosis of large intestine without perforation or abscess without bleeding; G47.33 Obstructive sleep apnea (adult) (pediatric); I10 Essential (primary) hypertension; F31.9 Bipolar disorder, unspecified; K21.9 Gastro-esophageal reflux disease without esophagitis; Z23 Encounter for immunization; M54.9 Dorsalgia, unspecified; G89.29 Other chronic pain; F25.1 Schizoaffective disorder, depressive type; E11.9 Type 2 diabetes mellitus without complications; J45.909 Unspecified asthma, uncomplicated; F43.10 Post-traumatic stress disorder, unspecified; E78.5 Hyperlipidemia, unspecified; E55.9 Vitamin D deficiency, unspecified; F48.2 Pseudobulbar affect; K59.09 Other constipation; F12.20 Cannabis dependence, uncomplicated; Z79.899 Other long term (current) drug therapy; Z79.84 Long term (current) use of oral hypoglycemic drugs; Z88.8 Allergy status to other drugs, medicaments and biological substances; Z88.0 Allergy status to penicillin; Z91.5 Personal history of self-harm
CPT/HCPCS: 0241U; 36415; 72193; 74177; 80048; 80053; 81001; 82947; 83690; 85025; 85610; 85730; 88305; 93005; 93010; 93306; 96361; 96365-59; 96375; 96376; 99284-25; A9270; C1751; J0295; J0744; J1100; J1170; J1650; J1815; J2250; J2405; J2704; J3010; J7030; J7050; J7120; Q2038; Q9967

== ENCOUNTER → 2020-06-28 | Outpatient (CLI) | payer OTHER ==
[~2020-06-28] MED LIST changes: +ABILIFY MYCITE10 MG PO; +AMOCLA875 PO; +ATOR20 PO; +GLIP5ER PO; +METF500 PO; +OMEP20ER PO; +OXYC10ER PO; +SENN187 PO; +TAMS.4ER PO; +Trazodone HCl300 MG PO; +VIIBRYD40 MG PO; +VISBIOME 112.51 EACH PO
[2020-06-28 14:06] LABS: BASOPHILS ABSOLUTE AUTO 0.05 K/mm3 (0.00-0.23); BASOPHILS PERCENT AUTO 0 % (0-2); EOSINOPHILS ABSOLUTE AUTO 0.21 K/mm3 (0.00-0.68); EOSINOPHILS PERCENT AUTO 2 % (0-6); Hematocrit 46.2 % (37.0-53.0); Hemoglobin 15.8 g/dL (13.5-17.5); IMMATURE GRAN ABSOLUTE AUTO 0.07 K/mm3 (0.00-0.10); IMMATURE GRAN PERCENT AUTO 1 % (0-1); LYMPHOCYTES ABSOLUTE AUTO 2.74 K/mm3 (0.84-5.20); LYMPHOCYTES PERCENT AUTO 24 % (21-46); MONOCYTES PERCENT AUTO 7 % (4-13); Mean Corpuscular HGB 31.7 pg (26.0-34.0); Mean Corpuscular HGB Conc 34.2 g/dL (31.5-36.5); Mean Corpuscular Volume 93 fL (80-100); Mean Platelet Volume 9.2 fL (9.1-12.4); NEUTROPHILS ABSOLUTE AUTO 7.44 K/mm3 (1.96-9.15); NEUTROPHILS PERCENT AUTO 66 % (41-73); Platelet Count 283 K/mm3 (150-400); RDW Coefficient Variation 12.8 % (11.7-14.2); RDW Standard Deviation 43.2 fL (35.1-46.3); Red Blood Cell Count 4.99 M/mm3 (4.30-5.90); White Blood Cell Count 11.31 K/mm3 (4.00-11.30)
[2020-06-28 14:13] LABS: Alanine Aminotransfer (ALT/SGP 51 U/L (12-78); Albumin, Blood 3.8 g/dL (3.4-5.0); Alk Phos 94 U/L (40-126); Anion Gap 5 mmol/L (6-16); Aspartate Aminotrans (AST/SGOT 20 U/L (12-37); Bilirubin, Total 0.5 mg/dL (0.1-1.0); Blood Urea Nitrogen 11 mg/dL (8-24); Bun/Creatinine Ratio 13.9 (12.0-20.0); CO2, Blood 32 mmol/L (21-32); Calcium, Blood 8.9 mg/dL (8.5-10.1); Chloride, Blood 103 mmol/L (98-108); Creatinine, Blood 0.79 mg/dL (0.60-1.20); Glomerular Filtration Rate >60 (60-); Glucose, Blood 204 mg/dL (70-99); Sodium, Blood 140 mmol/L (136-145); Total Protein, Blood 7.8 g/dL (6.4-8.2)
== END ==
LOC: LAB SHORT 13:58
PROVIDERS: Physician Assistant Medical
DX: S31.20XA Unspecified open wound of penis, initial encounter (principal)
CPT/HCPCS: 80053; 85025; 87070; 87077; 87147; 87186; 87205

== ENCOUNTER → 2020-08-29 | Outpatient (CLI) | payer OTHER ==
[2020-08-29 19:55] LABS: BASOPHILS ABSOLUTE AUTO 0.06 K/mm3 (0.00-0.23); BASOPHILS PERCENT AUTO 1 % (0-2); EOSINOPHILS ABSOLUTE AUTO 0.31 K/mm3 (0.00-0.68); EOSINOPHILS PERCENT AUTO 3 % (0-6); Hematocrit 51.3 % (37.0-53.0); Hemoglobin 17.8 g/dL (13.5-17.5); IMMATURE GRAN ABSOLUTE AUTO 0.07 K/mm3 (0.00-0.10); IMMATURE GRAN PERCENT AUTO 1 % (0-1); LYMPHOCYTES ABSOLUTE AUTO 2.71 K/mm3 (0.84-5.20); LYMPHOCYTES PERCENT AUTO 22 % (21-46); MONOCYTES ABSOLUTE AUTO 0.95 K/mm3 (0.16-1.47); MONOCYTES PERCENT AUTO 8 % (4-13); Mean Corpuscular HGB 31.5 pg (26.0-34.0); Mean Corpuscular HGB Conc 34.7 g/dL (31.5-36.5); Mean Corpuscular Volume 91 fL (80-100); Mean Platelet Volume 9.4 fL (9.1-12.4); NEUTROPHILS ABSOLUTE AUTO 7.98 K/mm3 (1.96-9.15); NEUTROPHILS PERCENT AUTO 66 % (41-73); Platelet Count 305 K/mm3 (150-400); RDW Coefficient Variation 12.2 % (11.7-14.2); RDW Standard Deviation 40.6 fL (35.1-46.3); Red Blood Cell Count 5.65 M/mm3 (4.30-5.90); White Blood Cell Count 12.08 K/mm3 (4.00-11.30)
[2020-08-29 19:58] LABS: Alanine Aminotransfer (ALT/SGP 47 U/L (12-78); Albumin, Blood 3.7 g/dL (3.4-5.0); Albumin/Globulin Ratio 0.8 (0.8-1.8); Alk Phos 108 U/L (50-136); Anion Gap 9 mmol/L (6-16); Aspartate Aminotrans (AST/SGOT 28 U/L (12-37); Bilirubin, Total 0.5 mg/dL (0.1-1.0); Blood Urea Nitrogen 15 mg/dL (8-24); Bun/Creatinine Ratio 21.2 (12.0-20.0); CO2, Blood 22 mmol/L (21-32); Chloride, Blood 99 mmol/L (98-108); Creatinine, Blood 0.71 mg/dL (0.60-1.20); Globulin, Blood 4.5 g/dL (2.2-4.0); Glomerular Filtration Rate >60 (60-); Glucose, Blood 472 mg/dL (70-99); Potassium, Blood 4.7 mmol/L (3.5-5.5); Sodium, Blood 130 mmol/L (136-145); Total Protein, Blood 8.2 g/dL (6.4-8.2)
== END | disposition home or self-care (01) ==
LOC: LAB 18:15 → LAB SHORT 18:15
PROVIDERS: Physician Assistant
DX: R61 Generalized hyperhidrosis (principal)
CPT/HCPCS: 80053; 85025

== ENCOUNTER 2021-12-28 11:44 | Emergency (ER) | payer OTHER ==
[~2021-12-28] VITALS: Ht 172.7 cm; Wt 106.6 kg
[~2021-12-28 11:44] MED LIST changes: +ABILIFY MYCITE5 M2 PO
[2021-12-28 12:50] LABS: BASOPHILS ABSOLUTE AUTO 0.05 K/mm3 (0.00-0.23); BASOPHILS PERCENT AUTO 0 % (0-2); EOSINOPHILS ABSOLUTE AUTO 0.16 K/mm3 (0.00-0.68); EOSINOPHILS PERCENT AUTO 1 % (0-6); Hematocrit 52.2 % (37.0-53.0); Hemoglobin 17.8 g/dL (13.5-17.5); IMMATURE GRAN ABSOLUTE AUTO 0.03 K/mm3 (0.00-0.10); IMMATURE GRAN PERCENT AUTO 0 % (0-1); LYMPHOCYTES ABSOLUTE AUTO 3.34 K/mm3 (0.84-5.20); LYMPHOCYTES PERCENT AUTO 26 % (21-46); MONOCYTES PERCENT AUTO 8 % (4-13); Mean Corpuscular HGB 30.6 pg (26.0-34.0); Mean Corpuscular HGB Conc 34.1 g/dL (31.5-36.5); Mean Corpuscular Volume 90 fL (80-100); Mean Platelet Volume 8.9 fL (9.1-12.4); NEUTROPHILS ABSOLUTE AUTO 8.11 K/mm3 (1.96-9.15); NEUTROPHILS PERCENT AUTO 64 % (41-73); Platelet Count 401 K/mm3 (150-400); RDW Coefficient Variation 12.8 % (11.7-14.2); RDW Standard Deviation 41.7 fL (35.1-46.3); Red Blood Cell Count 5.82 M/mm3 (4.30-5.90); White Blood Cell Count 12.69 K/mm3 (4.00-11.30)
[2021-12-28 13:23] LABS: Albumin, Blood 3.6 g/dL (3.4-5.0); Albumin/Globulin Ratio 0.8 (0.8-1.8); Bilirubin, Total 0.7 mg/dL (0.1-1.0); Bun/Creatinine Ratio 21.6 (12.0-20.0); Calcium, Blood 10.4 mg/dL (8.5-10.1); Creatinine, Blood 0.74 mg/dL (0.60-1.20); Globulin, Blood 4.6 g/dL (2.2-4.0); Potassium, Blood 4.3 mmol/L (3.5-5.5); Total Protein, Blood 8.2 g/dL (6.4-8.2)
[2021-12-28] MEDS ORDERED: Zovirax800 MG PO (15:18)
[2021-12-28] MEDS ORDERED: Norco 5-325 Ta1 EACH PO (15:18)
[2021-12-28] MEDS ORDERED: Bactrim Ds Tab1 EACH PO (15:18)
== END 2021-12-28 16:46 | disposition home or self-care (01) ==
LOC: ER 11:44
PROVIDERS: Physician Assistant
DX: L08.9 Local infection of the skin and subcutaneous tissue, unspecified (principal); E11.9 Type 2 diabetes mellitus without complications; I10 Essential (primary) hypertension; G47.33 Obstructive sleep apnea (adult) (pediatric); K21.9 Gastro-esophageal reflux disease without esophagitis; F17.200 Nicotine dependence, unspecified, uncomplicated; Z88.0 Allergy status to penicillin; Z86.14 Personal history of Methicillin resistant Staphylococcus aureus infection; Z88.6 Allergy status to analgesic agent; Z79.899 Other long term (current) drug therapy; Z79.84 Long term (current) use of oral hypoglycemic drugs; Z87.442 Personal history of urinary calculi
CPT/HCPCS: 36415; 80053; 85025; 87070; 87075; 87077; 87147; 87186; 87205; A9270; J7030

== ENCOUNTER → 2022-02-04 | Outpatient (CLI) | payer OTHER ==
[~2022-02-04] MED LIST changes: +Bactrim Ds Tab1 EACH PO; +Norco 5-325 Ta1 EACH PO; +Zovirax800 MG PO
== END | disposition home or self-care (01) ==
LOC: LAB 14:33 → LAB SHORT 14:33
DX: R52 Pain, unspecified (principal)
CPT/HCPCS: 87086

== ENCOUNTER 2022-06-01 06:25 | Emergency (ER) | payer OTHER ==
[~2022-06-01] VITALS: Ht 175.3 cm; Wt 102.1 kg
[2022-06-01 09:08] LABS: Influenza B, PCR NEGATIVE (NEGATIVE); Resp Syncytial Virus, PCR NEGATIVE (NEGATIVE); SARS-Cov-2 (COVID-19) PCR, MMC NEGATIVE (NEGATIVE)
[2022-06-01] MEDS ORDERED: ALBU2.5V5 INH (09:08)
[2022-06-01] MEDS ORDERED: AZIT250 PO (09:08)
[2022-06-01 09:21] LABS: Influenza A, PCR POSITIVE (NEGATIVE)
== END 2022-06-01 09:30 | disposition home or self-care (01) ==
LOC: ER 06:25
PROVIDERS: Emergency Medicine
DX: J10.1 Influenza due to other identified influenza virus with other respiratory manifestations (principal); J44.1 Chronic obstructive pulmonary disease with (acute) exacerbation; I10 Essential (primary) hypertension; K21.9 Gastro-esophageal reflux disease without esophagitis; E11.9 Type 2 diabetes mellitus without complications; E78.5 Hyperlipidemia, unspecified; Z88.0 Allergy status to penicillin; Z88.8 Allergy status to other drugs, medicaments and biological substances; Z79.899 Other long term (current) drug therapy; Z87.891 Personal history of nicotine dependence; Z20.822 Contact with and (suspected) exposure to COVID-19
CPT/HCPCS: 0241U; 71046; 93005; 93010; 94644; 94664; A9270; J1100

== ENCOUNTER 2022-07-05 10:34 | Emergency (ER) | payer OTHER ==
[~2022-07-05] VITALS: Ht 172.7 cm; Wt 106.6 kg
[~2022-07-05 10:34] MED LIST changes: +ALBU2.5V5 INH; +AZIT250 PO
[2022-07-05 10:46] VITALS: BP 146/104
== END 2022-07-05 11:34 | disposition home or self-care (01) ==
LOC: ER 10:34
DX: S63.613A Unspecified sprain of left middle finger, initial encounter (principal); J06.9 Acute upper respiratory infection, unspecified; W19.XXXA Unspecified fall, initial encounter; Z88.6 Allergy status to analgesic agent; Z88.0 Allergy status to penicillin; Z79.899 Other long term (current) drug therapy; Z79.84 Long term (current) use of oral hypoglycemic drugs; Z87.891 Personal history of nicotine dependence; I10 Essential (primary) hypertension; K21.9 Gastro-esophageal reflux disease without esophagitis; E11.9 Type 2 diabetes mellitus without complications; E78.5 Hyperlipidemia, unspecified; F43.10 Post-traumatic stress disorder, unspecified
CPT/HCPCS: 73140; A9270

== ENCOUNTER → 2023-06-27 | Outpatient (CLI) | payer OTHER ==
[~2023-06-27] MED LIST changes: +BENZTROPINE MESY1 M6 PO; +BUPROPION XL150 M1 PO; +BUSPIRONE HCL10 M6 PO; +HYDPAM50 PO; +MELA3 PO; +METFORMIN HCL500 M2 PO; +OLAN20 MM; +PANTOPRAZOLE SO40 M2 PO; +PRAVASTATIN SOD20 MG PO; +TAMSULOSIN HCL0.4 M1 PO; +THERA-D2000 UNIT PO; +TRAZ150T57 PO; +Ventolin/Prove6.7 GM INH; +bupropion HCl XL 300
[2023-06-27 17:30] LABS: BASOPHILS ABSOLUTE AUTO 0.04 K/mm3 (0.00-0.23); BASOPHILS PERCENT AUTO 1 % (0-2); EOSINOPHILS ABSOLUTE AUTO 0.16 K/mm3 (0.00-0.68); EOSINOPHILS PERCENT AUTO 2 % (0-6); Hematocrit 45.3 % (37.0-53.0); Hemoglobin 15.7 g/dL (13.5-17.5); IMMATURE GRAN ABSOLUTE AUTO 0.03 K/mm3 (0.00-0.10); IMMATURE GRAN PERCENT AUTO 0 % (0-1); LYMPHOCYTES ABSOLUTE AUTO 2.79 K/mm3 (0.84-5.20); LYMPHOCYTES PERCENT AUTO 33 % (21-46); MONOCYTES PERCENT AUTO 9 % (4-13); Mean Corpuscular HGB 30.3 pg (26.0-34.0); Mean Corpuscular HGB Conc 34.7 g/dL (31.5-36.5); Mean Corpuscular Volume 88 fL (80-100); Mean Platelet Volume 9.1 fL (9.1-12.4); NEUTROPHILS ABSOLUTE AUTO 4.74 K/mm3 (1.96-9.15); NEUTROPHILS PERCENT AUTO 55 % (41-73); Platelet Count 252 K/mm3 (150-400); RDW Coefficient Variation 13.1 % (11.7-14.2); RDW Standard Deviation 41.2 fL (35.1-46.3); Red Blood Cell Count 5.18 M/mm3 (4.30-5.90); White Blood Cell Count 8.56 K/mm3 (4.00-11.30)
[2023-06-27 17:40] LABS: Albumin, Blood 3.9 g/dL (3.4-5.0); Bilirubin, Total 0.5 mg/dL (0.1-1.0); Bun/Creatinine Ratio 9.5 (12.0-20.0); Calcium, Blood 9.4 mg/dL (8.5-10.1); Creatinine, Blood 1.05 mg/dL (0.60-1.20); Globulin, Blood 4.1 g/dL (2.2-4.0); Potassium, Blood 4.3 mmol/L (3.5-5.5)
== END | disposition home or self-care (01) ==
LOC: LAB SHORT 17:25 → LAB 17:25
PROVIDERS: Physician Assistant
DX: E13.65 Other specified diabetes mellitus with hyperglycemia (principal)
CPT/HCPCS: 80053; 83036; 83690; 85025

== ENCOUNTER 2023-07-07 09:13 | Emergency (ER) | payer OTHER ==
[~2023-07-07] VITALS: Ht 172.7 cm; Wt 108.9 kg
[2023-07-07] MEDS ORDERED: METF500 PO (09:59)
[2023-07-07 10:30] LABS: Source, Urine Clean Catch
[2023-07-07 10:31] LABS: BASOPHILS ABSOLUTE AUTO 0.03 K/mm3 (0.00-0.23); BASOPHILS PERCENT AUTO 0 % (0-2); EOSINOPHILS PERCENT AUTO 2 % (0-6); Hematocrit 41.4 % (37.0-53.0); Hemoglobin 14.6 g/dL (13.5-17.5); IMMATURE GRAN ABSOLUTE AUTO 0.03 K/mm3 (0.00-0.10); IMMATURE GRAN PERCENT AUTO 0 % (0-1); LYMPHOCYTES ABSOLUTE AUTO 1.91 K/mm3 (0.84-5.20); LYMPHOCYTES PERCENT AUTO 28 % (21-46); MONOCYTES ABSOLUTE AUTO 0.59 K/mm3 (0.16-1.47); MONOCYTES PERCENT AUTO 9 % (4-13); Mean Corpuscular HGB 30.9 pg (26.0-34.0); Mean Corpuscular HGB Conc 35.3 g/dL (31.5-36.5); Mean Corpuscular Volume 88 fL (80-100); NEUTROPHILS ABSOLUTE AUTO 4.08 K/mm3 (1.96-9.15); NEUTROPHILS PERCENT AUTO 61 % (41-73); Platelet Count 199 K/mm3 (150-400); RDW Coefficient Variation 12.6 % (11.7-14.2); RDW Standard Deviation 40.2 fL (35.1-46.3); Red Blood Cell Count 4.72 M/mm3 (4.30-5.90); White Blood Cell Count 6.74 K/mm3 (4.00-11.30)
[2023-07-07 10:36] LABS: Appearance, Urine Clear (Clear); Bilirubin, Urine Neg (Neg); Blood, Urine Neg (Neg); Color, Urine Yellow (P-Yellow); Glucose Qualitative, Urine 4+ (Neg); Ketones, Urine Neg (Neg); Leukocyte Esterase, Urine Neg (Neg); Nitrite, Urine Neg (Neg); Protein, Urine Neg (Neg); Specific Gravity, Urine 1.015 (1.003-1.022); Urobilinogen, Urine NORM (Normal)
[2023-07-07 10:43] LABS: Albumin, Blood 3.6 g/dL (3.4-5.0); Albumin/Globulin Ratio 1.1 (0.8-1.8); Bilirubin, Total 0.3 mg/dL (0.1-1.0); Bun/Creatinine Ratio 21.4 (12.0-20.0); Calcium, Blood 9.1 mg/dL (8.5-10.1); Creatinine, Blood 0.66 mg/dL (0.60-1.20); Globulin, Blood 3.4 g/dL (2.2-4.0); Potassium, Blood 4.3 mmol/L (3.5-5.5)
[2023-07-07] MEDS ORDERED: NS 1,000 ML IV SCH (10:50)
[2023-07-07 12:30] VITALS: BP 156/94
== END 2023-07-07 13:37 | disposition home or self-care (01) ==
LOC: ER 09:13
PROVIDERS: Student in an Organized Health Care Education/Training Program
DX: E11.65 Type 2 diabetes mellitus with hyperglycemia (principal); K21.9 Gastro-esophageal reflux disease without esophagitis; E11.9 Type 2 diabetes mellitus without complications; E78.5 Hyperlipidemia, unspecified; F43.10 Post-traumatic stress disorder, unspecified; Z87.891 Personal history of nicotine dependence
CPT/HCPCS: 80053; 81003; 82947; 85025; 96360; 99285-25; J7030

== ENCOUNTER 2023-07-16 12:44 | Emergency (ER) | payer OTHER ==
[~2023-07-16] VITALS: Ht 172.7 cm; Wt 108.9 kg
[2023-07-16] MEDS ORDERED: NS 1,000 ML IV SCH (12:55)
[2023-07-16 13:23] LABS: BASOPHILS ABSOLUTE AUTO 0.05 K/mm3 (0.00-0.23); BASOPHILS PERCENT AUTO 1 % (0-2); EOSINOPHILS ABSOLUTE AUTO 0.14 K/mm3 (0.00-0.68); EOSINOPHILS PERCENT AUTO 2 % (0-6); Hematocrit 42.1 % (37.0-53.0); Hemoglobin 14.7 g/dL (13.5-17.5); IMMATURE GRAN ABSOLUTE AUTO 0.05 K/mm3 (0.00-0.10); IMMATURE GRAN PERCENT AUTO 1 % (0-1); LYMPHOCYTES ABSOLUTE AUTO 2.28 K/mm3 (0.84-5.20); LYMPHOCYTES PERCENT AUTO 30 % (21-46); MONOCYTES ABSOLUTE AUTO 0.63 K/mm3 (0.16-1.47); MONOCYTES PERCENT AUTO 8 % (4-13); Mean Corpuscular HGB 30.8 pg (26.0-34.0); Mean Corpuscular HGB Conc 34.9 g/dL (31.5-36.5); Mean Corpuscular Volume 88 fL (80-100); Mean Platelet Volume 8.8 fL (9.1-12.4); NEUTROPHILS ABSOLUTE AUTO 4.55 K/mm3 (1.96-9.15); NEUTROPHILS PERCENT AUTO 59 % (41-73); Platelet Count 234 K/mm3 (150-400); RDW Coefficient Variation 12.9 % (11.7-14.2); RDW Standard Deviation 41.7 fL (35.1-46.3); Red Blood Cell Count 4.78 M/mm3 (4.30-5.90)
[2023-07-16 13:45] LABS: Albumin, Blood 3.5 g/dL (3.4-5.0); Bilirubin, Total 0.3 mg/dL (0.1-1.0); Bun/Creatinine Ratio 21.4 (12.0-20.0); Calcium, Blood 9.4 mg/dL (8.5-10.1); Creatinine, Blood 0.7 mg/dL (0.60-1.20); Globulin, Blood 3.6 g/dL (2.2-4.0); Potassium, Blood 4.2 mmol/L (3.5-5.5); Total Protein, Blood 7.1 g/dL (6.4-8.2)
[2023-07-16 14:04] LABS: Source, Urine Clean Catch
[2023-07-16 14:11] LABS: Appearance, Urine Clear (Clear); Bilirubin, Urine Neg (Neg); Blood, Urine Neg (Neg); Color, Urine Yellow (P-Yellow); Glucose Qualitative, Urine 4+ (Neg); Ketones, Urine 1+ (Neg); Leukocyte Esterase, Urine Neg (Neg); Nitrite, Urine Neg (Neg); Protein, Urine Neg (Neg); Urobilinogen, Urine NORM (Normal)
[2023-07-16] MEDS ORDERED: Insulin Regular 100 Unit/ML 1ML Dose IV ONE (15:50)
[2023-07-16] MEDS ORDERED: Ondansetron 4 MG SoluTab SL ONE (15:55)
[2023-07-16 16:45] VITALS: BP 148/102
[2023-07-16] MEDS ORDERED: GLIP10 PO (17:30)
== END 2023-07-16 17:37 | disposition home or self-care (01) ==
LOC: ER 12:44
PROVIDERS: Student in an Organized Health Care Education/Training Program
DX: E11.65 Type 2 diabetes mellitus with hyperglycemia (principal); Z88.6 Allergy status to analgesic agent; Z88.0 Allergy status to penicillin; Z79.899 Other long term (current) drug therapy; Z79.84 Long term (current) use of oral hypoglycemic drugs; K21.9 Gastro-esophageal reflux disease without esophagitis; E78.5 Hyperlipidemia, unspecified; F43.10 Post-traumatic stress disorder, unspecified; Z87.891 Personal history of nicotine dependence
CPT/HCPCS: 80053; 81003; 82947; 85025; A9270; J1815; J7030

== ENCOUNTER 2023-12-03 00:23 | Observation (INO) | payer OTHER ==
[~2023-12-03] VITALS: Ht 172.7 cm; Wt 106.6 kg
[~2023-12-03 00:23] MED LIST changes: +GLIP10 PO
[2023-12-03 01:08] LABS: BASOPHILS ABSOLUTE AUTO 0.05 K/mm3 (0.00-0.23); BASOPHILS PERCENT AUTO 1 % (0-2); EOSINOPHILS ABSOLUTE AUTO 0.21 K/mm3 (0.00-0.68); EOSINOPHILS PERCENT AUTO 2 % (0-6); Hematocrit 45.9 % (37.0-53.0); Hemoglobin 15.8 g/dL (13.5-17.5); IMMATURE GRAN ABSOLUTE AUTO 0.03 K/mm3 (0.00-0.10); IMMATURE GRAN PERCENT AUTO 0 % (0-1); LYMPHOCYTES ABSOLUTE AUTO 3.71 K/mm3 (0.84-5.20); LYMPHOCYTES PERCENT AUTO 42 % (21-46); MONOCYTES ABSOLUTE AUTO 0.78 K/mm3 (0.16-1.47); MONOCYTES PERCENT AUTO 9 % (4-13); Mean Corpuscular HGB 31.3 pg (26.0-34.0); Mean Corpuscular HGB Conc 34.4 g/dL (31.5-36.5); Mean Corpuscular Volume 91 fL (80-100); Mean Platelet Volume 8.8 fL (9.1-12.4); NEUTROPHILS ABSOLUTE AUTO 4.14 K/mm3 (1.96-9.15); NEUTROPHILS PERCENT AUTO 46 % (41-73); Platelet Count 278 K/mm3 (150-400); RDW Coefficient Variation 12.7 % (11.7-14.2); RDW Standard Deviation 42.1 fL (35.1-46.3); Red Blood Cell Count 5.05 M/mm3 (4.30-5.90); White Blood Cell Count 8.92 K/mm3 (4.00-11.30)
[2023-12-03 01:26] LABS: Ethanol (Alcohol), Blood, Med <3 mg/dL; Salicylate <1.7 mg/dL (2.8-20.0)
[2023-12-03 01:28] LABS: Acetaminophen, Random <2.0 ug/mL (10.0-30.0); Alanine Aminotransfer (ALT/SGP 26 U/L (12-78); Albumin, Blood 3.3 g/dL (3.4-5.0); Albumin/Globulin Ratio 0.9 (0.8-1.8); Alk Phos 80 U/L (50-136); Anion Gap 12 mmol/L (3-11); Aspartate Aminotrans (AST/SGOT 16 U/L (12-37); Bilirubin, Total 0.5 mg/dL (0.1-1.0); Blood Urea Nitrogen 14 mg/dL (8-24); Bun/Creatinine Ratio 16.2 (12.0-20.0); CO2, Blood 26 mmol/L (21-32); Calcium, Blood 8.8 mg/dL (8.5-10.1); Chloride, Blood 108 mmol/L (98-108); Creatinine, Blood 0.86 mg/dL (0.60-1.20); Globulin, Blood 3.7 g/dL (2.2-4.0); Glomerular Filtration Rate 100 (60-); Glucose, Blood 221 mg/dL (70-99); Potassium, Blood 3.5 mmol/L (3.5-5.5); Sodium, Blood 142 mmol/L (136-145)
[2023-12-03 02:02] LABS: Source, Urine Clean Catch
[2023-12-03 02:42] LABS: Bilirubin, Urine Neg (Neg); Blood, Urine 1+ (Neg); Glucose Qualitative, Urine 3+ (Neg); Ketones, Urine 1+ (Neg); Leukocyte Esterase, Urine Neg (Neg); Nitrite, Urine Neg (Neg); Protein, Urine 3+ (Neg); Urobilinogen, Urine 2+ (Normal)
[2023-12-03 02:43] LABS: Appearance, Urine Hazy (Clear); Color, Urine Yellow (P-Yellow)
[2023-12-03 02:45] LABS: Amorphous Light (0-Heavy); Bacteria Few /hpf; Calcium Oxalate Crystals Mod /hpf; Mucus Light (0-Heavy); Red Blood Cells, Urine 0-2 /hpf (0-2); Squamous Epithelial Cells Few /hpf (Few); White Blood Cells, Urine 0-2 /hpf (0-5)
[2023-12-03 02:51] LABS: U Amphetamine Screen Not Detected; U Barbituate Screen Not Detected; U Benzodiazapine Screen Not Detected; U Buprenorphine Screen Not Detected; U Cannabinoids Screen Not Detected; U Cocaine Screen Not Detected; U Methadone Screen Not Detected; U Methamphetamine Screen Not Detected; U Opiates Screen Not Detected; U Oxycodone Screen Not Detected; U Phencyclidine Screen Not Detected
[2023-12-03 10:57] VITALS: BP 118/80
[2023-12-03] MEDS ORDERED: Acetaminophen 325 MG TABLET PO ONE (12:15)
[2023-12-03] MEDS ORDERED: OZEMPIC0.25 MG/02 (16:44)
[2023-12-05] MEDS ORDERED: BUSPIRONE HCL10 M6 PO (08:14)
[2023-12-05] MEDS ORDERED: LURASIDONE HCL40 MG PO (08:19)
[2023-12-05] MEDS ORDERED: MULTIPLE VITAM1 EACH PO (08:21)
[2023-12-05] MEDS ORDERED: TAMSULOSIN HCL0.4 M1 PO (08:24)
[2023-12-07] MEDS ORDERED: ALBU90OI INH (16:25)
[2023-12-07] MEDS ORDERED: SYMBICORT 160-4.6 GM INH (16:42)
[2023-12-07] MEDS ORDERED: BUPROPION XL450 MG PO ×2 (16:43→16:44)
[2023-12-07] MEDS ORDERED: BUSPIRONE HCL10 M1 PO (16:44)
== END 2023-12-03 14:27 | disposition other institution (70) ==
LOC: ER 00:23 → EOR 00:24
PROVIDERS: ADMIT Emergency Medicine
DX: F32.A Depression, unspecified (principal); R45.851 Suicidal ideations; F25.9 Schizoaffective disorder, unspecified; E11.9 Type 2 diabetes mellitus without complications; E78.5 Hyperlipidemia, unspecified; K21.9 Gastro-esophageal reflux disease without esophagitis; I10 Essential (primary) hypertension; Z79.84 Long term (current) use of oral hypoglycemic drugs; Z79.899 Other long term (current) drug therapy; Z88.0 Allergy status to penicillin; Z88.6 Allergy status to analgesic agent; Z87.891 Personal history of nicotine dependence
CPT/HCPCS: 80053; 80320; 81001; 81025; 85025; 93005; 93010; 99285-25; A9270; G0378; G0480

== ENCOUNTER 2023-12-03 11:50 | Inpatient (IN) | payer OTHER ==
[~2023-12-03] VITALS: Ht 172.7 cm; Wt 109.0 kg
[2023-12-03] MEDS ORDERED: TraZODone HCl 50 MG Tab PO PRN (13:30)
[2023-12-03] MEDS ORDERED: OLANZapine ODT 5 MG Tab MM PRN (13:35)
[2023-12-03] MEDS ORDERED: FLU VACC TS2024-25(6MOS UP)/PF 45 MCG/0.5 ML SYRINGE IM SCH (13:35)
[2023-12-03] MEDS ORDERED: OLANZapine ODT 10 MG Tab MM PRN (13:35)
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
[2023-12-03 15:46] VITALS: BP 129/85
[2023-12-03] MEDS ORDERED: ATEN50 PO (16:37)
[2023-12-03] MEDS ORDERED: OZEMPIC0.25 MG/02 ×2 (16:44)
[2023-12-03] MEDS ORDERED: Trazodone HCl300 MG PO (16:45)
--- NOTE | 2023-12-03 17:14 | NUR ---
PT WAS ABLE TO CONFIRM PART OF HIS DAILY MEDICATIONS AND NOTIFIED PROVIDER. WILL NEED FOLLOW UP WHEN PCP OFFICE ON TUESDAY
[2023-12-03] MEDS ORDERED: GlipiZIDE 10 MG Tab PO SCH ×2 (17:22→21:00)
[2023-12-03] MEDS ORDERED: Atenolol 50 MG Tab PO SCH (18:00)
[2023-12-03] MEDS ORDERED: HydrOXYzine Pamoate 50 MG Cap PO SCH (21:00)
[2023-12-03 23:58] VITALS: BP 142/93
--- NOTE | 2023-12-04 04:17 | NUR ---
Patient with flat affect is A&OX4, No SI,HI or AVH. WENT TO BED VERY EARLY AND SLEPT THROUGH THE NIGHT. hE WAS ENQUIRING ABOUT HIS HS 300 MG TRAZODONE, BUT LATER DECIDED HE DID NOT WANT IT. UP IN HALLS FOR SNACK BEFORE BED. SLEEP TIME APPROXIMATELY 8 HOURS SO FAR
[2023-12-04] MEDS ORDERED: buPROPion HCL 150 MG TAB.SR.12H PO SCH (08:00)
[2023-12-04] MEDS ORDERED: MetFORMIN HCl 500 mg PO SCH (09:00)
[2023-12-04] MEDS ORDERED: Pantoprazole Sodium 40 MG Tab PO SCH (09:00)
[2023-12-04 09:14] VITALS: BP 141/87
--- NOTE | 2023-12-04 13:35 | NUR ---
TALKED WITH PT AFTER LUNCH STATES THAT HE IS STILL HAVING THOUGHTS OF WANTING OT HARM HIMSELF BUT DENIES INTENT. C/O INCREASED ANXIETY WITH THE THOUGHTS. REQUESTED PRN MEDICATION. MEDICATED WITH PRN ZYPREXA PER EMR. PT IN DAY ROOM WATCHING FOOTBALL WITH OTHER PATIENTS AND STAFF.
--- NOTE | 2023-12-04 18:07 | NUR ---
SHIFT SUMMARY: PT ALERT, ORIENTED AND COOPERATIVE. COMPLIANT WITH MEDICATIONS. PT STATED THAT HE WAS FEELING BETTER AFTER HAVING PRN ZYPREXA. HE ENGAGED IN DEPT MILIEU AND WAS VISIBLE IN THE DEPT MOST OF THE DAY. SPENT TIME IN THE DAY ROOM WATCHING TV AND PARTICIPATED IN MEALS.
[2023-12-04 21:32] VITALS: BP 162/102
--- NOTE | 2023-12-05 04:32 | NUR ---
Patient A&OX4, Slightly agitated in the evening when he was woken for vital signs and a nursing assessment. Blood pressure 160/101 at that time. Meds to be verified with his pharmacy today of which there are two more blood pressure medications that will likely be added to the patient's medication list once confirmed. Sleep time thus far approximately 10 hours. will continiue close monitoring
[2023-12-05] MEDS ORDERED: BUSPIRONE HCL10 M6 PO ×2 (08:14)
[2023-12-05 08:16] VITALS: BP 146/106
[2023-12-05] MEDS ORDERED: THERA-D2000 UNIT PO (08:16)
[2023-12-05] MEDS ORDERED: LURASIDONE HCL40 MG PO ×2 (08:19)
[2023-12-05] MEDS ORDERED: MULTIPLE VITAM1 EACH PO ×2 (08:21)
[2023-12-05] MEDS ORDERED: TAMSULOSIN HCL0.4 M1 PO ×2 (08:24)
[2023-12-05] MEDS ORDERED: Acetaminophen 325 MG TABLET PO PRN (10:40)
--- NOTE | 2023-12-05 10:49 | NUR ---
PT MEDICATED FOR C/O /10 HEADACHE WITH PRN TYLENOL PER ORDERS. PT RESTING IN BED AT THIS TIME.
--- NOTE | 2023-12-05 17:27 | NUR ---
SHIFT SUMMARY: PT ALERT, ORIENTED AND COOPERATIVE. PT STATES THAT HE IS STILL HAVING SI BUT DENIES INTENT. HE PARTICIPATED IN MEALS BUT STAYED IN BED THE MAJORITY OF THE DAY. HE WAS VISIBLE ON THE UNIT IN THE EVENING WATCHING TV IN THE DAY ROOM.
[2023-12-05] MEDS ORDERED: MetFORMIN HCl 500 mg PO SCH (18:43)
--- NOTE | 2023-12-05 19:28 | NUR ---
Meds reconciled with PCP earlier today. LATUDA is non formulary here as is OZEMPIC. Patient states [facility]. All other medications ordered shall be given as ordered. will continue close monitoring
[2023-12-05] MEDS ORDERED: BusPIRone HCl 10 MG Tab PO SCH (21:00)
[2023-12-05] MEDS ORDERED: Melatonin 5 MG Tablet PO SCH (21:00)
[2023-12-06 00:06] VITALS: BP 151/109
--- NOTE | 2023-12-06 05:01 | NUR ---
Patient was much more social in the evening than he had been the last few days. Up in the TV room with his peers, then he took a shower on his own before bed. UNABLE TO GET LURASIDONE OR OZEMPIC FROM HOSPITAL PHARMACY both are non formulary and without substitutes. Patient says he doesn't know where he would even look for [facility] medications [facility] if they were [facility] there. Sleep time so far approximately 7.5 hours. Still getting one-two word answers when asked about SI. Per evening assessment, No SI, HI but does appear to be responding to some internal stimuli at bedtime.
[2023-12-06] MEDS ORDERED: Pantoprazole Sodium 40 MG Tab PO SCH (06:00)
[2023-12-06 08:50] VITALS: BP 146/100
[2023-12-06] MEDS ORDERED: Multivitamins/Minerals TAB PO SCH (09:00)
[2023-12-06] MEDS ORDERED: LURASIDONE 40 MG TAB PO SCH (09:00)
[2023-12-06] MEDS ORDERED: Cholecalciferol 1000 Unit Tablet (=25MCG) PO SCH (09:00)
[2023-12-06] MEDS ORDERED: Lisinopril 20 MG Tab PO SCH (09:00)
[2023-12-06] MEDS ORDERED: Pravastatin Sodium 20 MG Tab PO SCH (09:00)
[2023-12-06] MEDS ORDERED: Tamsulosin HCl 0.4 MG Cap PO SCH (09:00)
--- NOTE | 2023-12-06 17:12 | NUR ---
[facility]/OZEMPIC: ADELAIDA FROM THE [facility] CALLED. STATES THAT SHE GIVE PT HIS OZEMPIC INJECTIONS EVERY TUESDAY AND NEEDS TO COME TOMORROW TO GIVE IT TO HIM. PT AWARE AND PROVIDED PERMISSION FOR HER TO COME IN. FINISH PATCHER NOTIFIED TO ASSIST WITH THE PROCESS ON 12/06.
--- NOTE | 2023-12-06 17:23 | NUR ---
SHIFT SUMMARY: PT ALERT, ORIENTED AND COOPERATIVE. COMPLIANT WITH MEDICATIONS. PT REPORTS THAT HE FEELS ABOUT THE SAME. REPORTS SI WITHOUT INTENT. HE IS QUIET AND APPEARS TEARFUL AT TIMES. MEDICATED WITH PRN PER EMAR FOR ANXIETY. PT VERBALIZED CONCERN THAT HE WOULD GET "KICKED OUT" BECAUSE HE IS SUICIDAL. REASSURED PT THAT HE IS SAFE HERE AND HE WILL NOT GET KICKED OUT. PT GRATEFUL FOR THIS AND APPEARED RELIEVED.
[2023-12-06 20:49] VITALS: BP 116/87
--- NOTE | 2023-12-07 06:20 | NUR ---
Patient spent the evening resting in his bed. He was cooperative with assessment. He took his scheduled medication without issue. He denied new concerns at this time. He acknowledged that he continues to have suicidal ideation most of the time. He contracted for safety on the unit. He is able to make his needs known. Plan of care ongoing. He appeared to be sleeping for 9 hours.
--- NOTE | 2023-12-07 07:30 | NUR ---
SI REPORTED MHA REPORTED TO THIS NURSE, PT CAME OUT OF ROOM AND WHEN ASKED HOW HE WAS FEELING THIS A.M. PT REPORTED SAME, TIRED OF LIFE, STILL WANTING TO , AND QUESTIONING WHEN HE WILL BE RELEASED TO LEAVE. WILL INFORM PROVIDER.
--- NOTE | 2023-12-07 07:41 | NUR ---
SI ASSESSMENT CONVERSATION WITH PT, PT REPORTS FEARS OF DISCHARGE AND RETURN TO [facility]. PT INFORMS THOUGHTS OF JUMPING FROM PARKING GARAGE. DISCUSSED WITH PT RISK FOR INJURY WITHOUT AND NEGATIVE OUTCOMES. PT REPORTS NEEDING ANTI DEPPRESSANTS AND THANKFUL FOR CONVERSATION.
[2023-12-07 08:23] VITALS: BP 114/71
[2023-12-07] MEDS ORDERED: buPROPion HCL 150 MG TAB.SR.12H PO ONE (14:15)
[2023-12-07] MEDS ORDERED: buPROPion HCL 150 MG TAB.SR.12H PO SCH ×2 (16:04→17:00)
[2023-12-07] MEDS ORDERED: ALBU90OI INH ×2 (16:25)
[2023-12-07] MEDS ORDERED: SYMBICORT 160-4.6 GM INH ×2 (16:42)
[2023-12-07] MEDS ORDERED: BUPROPION XL450 MG PO ×4 (16:43→16:44)
[2023-12-07] MEDS ORDERED: BUSPIRONE HCL10 M1 PO ×2 (16:44)
--- NOTE | 2023-12-07 17:37 | NUR ---
SHIFT SUMMARY PT [email or web address]. PLEASANT AND COOPERATIVE WITH CARE. PT REPORTS SI WITH PLAN BUT NO INTENT THIS SHIFT. PT STATES HE FEELS LIKE HE WOULD COMPLETE SI IF HE WERE TO BE DISCHARGED, BUT WILL NOT DO ANYTHING TO HURT HIMSELF HERE ON THE UNIT. PT HAD VISIT FROM RN WITH [facility] ACT TEAM. ACT TEAM WORKING ON DC PLAN. MEDS WERE RECONCILED AND MED CHANGES WERE ORDERED/IMPLEMENTED TODAY. PT DECLINED GROUP THIS AM, BUT DID ATTEND GROUPS LATER IN THE AFTERNOON. PT CURRENTLY SITTING IN GROUP ROOM WATCHING A MOVIE. PT DENIES ANY NEEDS AT THIS TIME.
[2023-12-07] MEDS ORDERED: SEMAGLUTIDE SC SCH (18:00)
--- NOTE | 2023-12-08 06:09 | NUR ---
Patient watched TV for 30 minutes but spent most of the evening resting in bed. He was cooperative with assessment. He took his scheduled medication and PRN trazodone without issue. He denied new concerns at this time. He continues to endorse SI but contracts for safety on the unit. He is able to make his needs known. Plan of care ongoing. He appeared to be sleeping for 10 hours.
[2023-12-08 08:26] VITALS: BP 135/91
[2023-12-08] MEDS ORDERED: Ondansetron 4 MG TAB PO ONE (08:45)
[2023-12-08] MEDS ORDERED: buPROPion HCL 150 MG TAB.SR.12H PO SCH (09:00)
--- NOTE | 2023-12-08 16:13 | NUR ---
SHIFT SUMMARY PT AxOx4. PLEASANT AND COOPERATIVE WITH CARE. PT REPORTS "POOR MOOD" THIS SHIFT, STATING NO CHANGES UNTIL APPROX 1600 WHEN HE SAID HE FELT "A LITTLE BETTER, LIKE JUST OKAY." PT ENDORSED +SI WITHOUT INTENT/PLAN BY THE END OF THE SHIFT, YET ALSO STATED HE STILL DOESN'T FEEL LIKE HIS DEPRESSION MEDS ARE HELPING. PT ATTENDED GROUP THERAPY AND MINGLED ON THE UNIT WITH PEERS & STAFF THIS SHIFT. HE SPENT MORE TIME IN HIS ROOM DURING THE FIRST PART OF THE DAY AND NEEDED EXTRA ENCOURAGEMENT TO COME OUT. HE DID SEEM TO COME OUT MORE FREELY TOWARDS THE LAST HALF OF THE DAY. PT IS CURRENTLY SITTING IN GROUP ROOM WATCHING FOOTBALL GAME AND EATING POPCORN WITH PEERS. HE DENIES ANY NEEDS AT THIS TIME.
--- NOTE | 2023-12-09 04:14 | NUR ---
ASSUMED CARE FROM PRIOR SHIFT. PATIENT ALREADY IN BED SLEEPING. HE DOES WAKE EASILY FOR MEDICATION AND ASSESSMENT. HE IS COMPLIANT WITH BOTH. HE CURRENTLY DENIES SI, VH OR AH. HE QUICKLY ANSWERS QUESTIONS, TAKES HIS PM MEDICATIONS AND ROLLS OVER AND GOES BACK TO SLEEP. NO NOTED BEHAVIORS OR ISSUES. HE SLEEPS THE NIGHT.
[2023-12-09 08:22] VITALS: BP 128/91
--- NOTE | 2023-12-09 15:39 | NUR ---
SHIFT SUMMARY PT AA&OX4. PT QUIET AND SPENT MOST OF THE DAY IN BED. SPEECH AND EYE CONTACT MINIMAL. PT REPORTED NAUSEA THIS AM AND HEADACHE THIS AFTERNOON. PT REPORTS SI BUT STATES THAT HE "FEELS SAFE HERE" BUT WOULD "RUN IN FRONT OF CAR" IF HE WERE TO LEAVE. PT REPORTS HE HAS NO PLAN TO SELF HARM HERE. PT COMPLIANT WITH MEDICATIONS. PRN TYLENOL GIVEN FOR HEADACHE WITH GOOD RESULTS. PT UP FOR MEALS BUT MINIMAL PARTICIPATION WITH GROUPS OR [facility]. HE DENIES ANY CURRENT NEEDS AT THIS TIME. WILL CONTINUE POC
--- NOTE | 2023-12-10 03:31 | NUR ---
PATIENT WAS IN BED RESTING AT THE BEGINNING OF THE SHIFT. HE WAS PLEASANT AND COOPERATIVE WITH CARES, INCLUDING EVENING MEDICATIONS, WHICH HE TOOK IN HIS BED. HE REMAINED IN BED THROUGHOUT THE SHIFT, WITH EYES CLOSED AND RESPIRATIONS CONFIRMED. HE HAD NO S/SX SUICIDAL IDEATION NOTED THIS SHIFT.
[2023-12-10 08:52] VITALS: BP 146/102
--- NOTE | 2023-12-10 09:18 | NUR ---
AM ASSESSMENT PT DENIES ANY SI AT THIS TIME. PT COOPERATIVE W/ CARE ALTHOUGH REPORTS HEADACHE AND REQUESTING TYLENOL. PT BP ELEVATED THIS AM AND REASSESSED AT THIS TIME. WILL CONTINUE TO MONITOR FOR SI AND OBSERVE S/S OF HTN AND HEADACHE.
--- NOTE | 2023-12-10 18:10 | NUR ---
SHIFT SUMMARY PT CONTINUES TO BE DISINTERESTED IN ACTIVITIES OR ENGAGING WITH PEERS AND STAFF. PT VERY COOPERATIVE AND FRIENDLY BUT ONLY UP FOR MEALS THEN RETURNS TO BED. PT DID SIT IN TV ROOM FOR APPROX 1/2 HOUR TODAY DURING SNACK TIME. PT DENIES INTENT TO SELF HARM BUT CONTINUES TO REPORT SADNESS AND DEPRESSION. DISCUSSED W/ PT IDEAS OF RETRAINING THE BRAIN TO BE HAPPY, STARTING WITH A CONSTANT SMILE. PT APPEARS TO APPRECIATE STAFF CONVERSATION BUT ON AN INDIVIDUAL LEVEL. WILL CONTINUE TO MONITOR AND ENCOURAGE PARTICIPATION.
--- NOTE | 2023-12-11 03:18 | NUR ---
PATIENT WAS IN BED RESTING THE ENTIRE SHIFT. HE WAS EASILY AWAKENED FOR EVENING MEDICATIONS. HE STATED, "I HOPE i CAN GO BACK TO SLEEP" BUT INDICATED THAT HE DID WANT THE MEDICATIONS, INCLUDING PRN TRAZODONE FOR INSOMNIA. HE WAS MOSTLY NOTED TO BE QUIETLY RESTING WITH EYES CLOSED AND RESPIRATIONS CONFIRMED. HE HAD NO S/SX SUICIDAL IDEATION NOTED THIS SHIFT.
[2023-12-11 08:06] VITALS: BP 142/94
--- NOTE | 2023-12-11 13:55 | NUR ---
AM ASSESSMENT PT CONTINUES TO REPORT SADNESS, WITH LOW SLOW SPEACH. PT LYING IN BED. DISCUSSED W/ PT TO SPEND MORE TIME OUT OF HIS ROOM AND SOCIALIZING TODAY. PT ACKNOWLEDGES AN UNDERSTANDING OF LIMITED ACTIVITY AND SOCIALIZATION INCREASES RISK FOR SADNESS AND DEPRESSION. PT DOES NOT REPORT SI CURRENTLY, JUST SADNESS AND WORRIED ABOUT DISCHARGE AND WHERE HE WILL GO. EXPLAINED TO PT THAT STAFF ARE WORKING TOWARD A PLAN AND HE ALSO NEEDS TO PARTICIPATE IN PLANS AND FOR CHANGE. WILL CONTINUE TO MONITOR PER UNIT PROTOCOLS.
--- NOTE | 2023-12-11 16:39 | NUR ---
PT OOB AND OOR PT UP SEVERAL TIMES TODAY TO TV ROOM TO WATCH FOOTBALL WITH PEERS. PT CONVERSING WITH OTHER PT'S AND STAFF MORE THAN PREVIOUS SHIFTS I HAVE WORKED WITH THIS PT. PT RECIEVED CALL FROM PRIOR ROOMMATE TODAY BUT UNABLE TO CONFIRM OR DENY PT ADMIT.
--- NOTE | 2023-12-11 17:25 | NUR ---
FALL REPORTED PT SELF REPORTS FALLING OUT OF BED LAST NIGHT. NO REDNESS, SWELLING, BRUISING TO LEFT SIDE. PT REPORTS HE WAS ASLEEP AND WENT TO ROLL OVER AND FELL OUT OF BED. NO PREVIOUS MENTION OF FALL DURING THIS SHIFT.
--- NOTE | 2023-12-11 17:38 | NUR ---
SHIFT SUMMARY PT COOPERATIVE AND FRIENDLY. DENIES SI CURRENTLY BUT CONTINUES TO REPORT SADNESS AND WORRY REGARDING PLACEMENT AT DISCHARGE. PT PARTICIPATING MORE TODAY WITH PEERS IN TV ROOM AND WATCHING SPORTS FOR 1/2-HOUR INCREMENTS THEN BACK TO BED. THIS NURSE CONTINUES TO ENCOURAGE SMILING WITH PERMA-GRIN AND DID VISUALIZE SMALL SMIRK GRIN. WILL CONTINUE TO MONITOR PER UNIT PROTOCOLS AND PROVIDE ENCOURAGEMENT AND SUPPORT.
[2023-12-11 20:31] VITALS: BP 121/83
--- NOTE | 2023-12-12 05:59 | NUR ---
Patient spent the evening resting in bed. He was cooperative with assessment. He took his scheduled medication and PRN trazodone without issue. He denied new concerns at this time. He endorsed continuing depression but denied SI at this time. He is able to make his needs known. Plan of care ongoing. He appeared to be sleeping in his bed for 10 hours.
[2023-12-12 08:07] VITALS: BP 120/88
--- NOTE | 2023-12-12 18:04 | NUR ---
Pt is A&O, calm, cooperative, eye contact is good. Pt is depressed with congruent affect. He endorses SI with plan to "walk in front of a car." Pt says he will not act on SI thoughts and will report to staff if he developes urges to follow through. Pt denies HI, AVH, and current pain. Pt stated that he did not sleep well last night and spent the morning in his room. He was up to the TV room during the afternoon.
[2023-12-12 19:53] VITALS: BP 98/60
--- NOTE | 2023-12-13 05:47 | NUR ---
Patient spent the evening resting in bed. He was cooperative with assessment. He took his scheduled medication and PRN trazodone without issue. He endorsed continuing SI. He denied new concerns at this time. He is able to make his needs known. Plan of care ongoing. He appeared to be resting for 9 hours.
[2023-12-13 08:32] VITALS: BP 134/96
--- NOTE | 2023-12-13 17:18 | NUR ---
SHIFT SUMMARY PT A/O X4; PLEASANT AND COOPERATIVE WITH CARE. PT REPORTS ANXIETY RELATED TO DISCHARGE TODAY. HE ENDORSED SI WITH A PLAN, BUT NOTHING HE CAN CARRY OUT WHILE HERE. PT STATED THAT HE PLANS TO "JUMP OFF THE PARKING GARAGE" WHEN HE DISCHARGES. THE PLAN IS FOR THE PT TO DC TOMORROW LATE AFTERNOON. PT'S PAYEE IS PUTTING MONEY ON HIS CARD AND HE WILL E[facility]. THE PT'S MOOD IS DEPRESSED AND HE REPORTS POOR SLEEP.
[2023-12-13 20:50] VITALS: BP 126/77
--- NOTE | 2023-12-14 04:24 | NUR ---
PATIENT WAS IN BED RESTING WITH EYES CLOSED THROUGHOUT THE SHIFT. HE WAS AWAKENED FOR EVENING MEDICATIONS, WHICH HE TOOK, THEN WENT BACK TO RESTING WITH EYES CLOSED AND RESPIRATIONS CONFIRMED. HE HAD NO S/SX SUICIDAL IDEATION THIS SHIFT, POSSIBLY DUE TO SLEEPING THE ENTIRE TIME.
[2023-12-14 08:14] VITALS: BP 133/96
--- NOTE | 2023-12-14 08:39 | NUR ---
PATIENT STATES HE IS STILL SI. HIS PLAN IS TO JUMP OFF A TALL GARAGE BUILDING WILL LET DR MCCARTHY KNOW ON TEAM MEETING.
--- NOTE | 2023-12-14 11:18 | NUR ---
PATIENT WOULD NOT PRTICIPATE IN GROUPS.. JUST LAYS IN BED AND SLEEPS.. DOES GET UP FOR MEALS. PATIENT HAS DISCHARGE ORDERS. WAITING FOR FUTHER INFORMATION TO DISCHARGE INSTRUCTIONS
--- NOTE | 2023-12-14 11:59 | NUR ---
Pt Discharge Information Pts ACT Team Water Softener Installer Juliana is working on aquiring hotel accomodations for him and will be calling with machine operator picker time from the act team to transport him over to the hotel. Juliana will be reaching out to the unit with a time when she has more information later this afternoon. Juliana [phone]
--- NOTE | 2023-12-14 13:23 | NUR ---
DISCHARGE SUMMARY PT PICKED UP BY ACT TEAM AT [id number]. HOME MEDICATIONS CONTINUED, SO NO MEDICATIONS FAXED TO PHARMACY. ACT TEAM TO SCHEDULE FOLLOW UP APPOINTMENTS. DC INSTRUCTIONS GONE OVER WITH PATIENT AND PATIENTS EXPRESSED UNDERSTANDING. BELONGINGS RETURNED TO PATIENT.
== END 2023-12-14 13:19 | disposition home or self-care (01) | DRG 885 ==
LOC: BHU 11:50
PROVIDERS: ADMIT Psychiatry & Neurology Psychiatry
DX: F25.1 Schizoaffective disorder, depressive type (principal); F12.10 Cannabis abuse, uncomplicated; M54.9 Dorsalgia, unspecified; G89.29 Other chronic pain; E55.9 Vitamin D deficiency, unspecified; E78.5 Hyperlipidemia, unspecified; Z87.19 Personal history of other diseases of the digestive system; E66.9 Obesity, unspecified; K21.9 Gastro-esophageal reflux disease without esophagitis; I10 Essential (primary) hypertension; E11.42 Type 2 diabetes mellitus with diabetic polyneuropathy; Z88.0 Allergy status to penicillin; Z88.1 Allergy status to other antibiotic agents; Z88.6 Allergy status to analgesic agent; Z88.8 Allergy status to other drugs, medicaments and biological substances; Z91.011 Allergy to milk products; Z79.84 Long term (current) use of oral hypoglycemic drugs; Z79.899 Other long term (current) drug therapy; Z79.811 Long term (current) use of aromatase inhibitors
CPT/HCPCS: 82947; A9270

== ENCOUNTER 2023-12-20 11:30 | Observation (INO) | payer OTHER ==
[~2023-12-20] VITALS: Ht 170.2 cm; Wt 108.9 kg
[~2023-12-20 11:30] MED LIST changes: +BUPROPION XL450 MG PO; +BUSPIRONE HCL10 M1 PO; +LURASIDONE HCL40 MG PO; +MULTIPLE VITAM1 EACH PO; +OZEMPIC0.25 MG/02; +SYMBICORT 160-4.6 GM INH
[2023-12-20 12:47] LABS: BASOPHILS ABSOLUTE AUTO 0.05 K/mm3 (0.00-0.23); BASOPHILS PERCENT AUTO 0 % (0-2); EOSINOPHILS ABSOLUTE AUTO 0.15 K/mm3 (0.00-0.68); EOSINOPHILS PERCENT AUTO 1 % (0-6); Hematocrit 48.8 % (37.0-53.0); Hemoglobin 17.2 g/dL (13.5-17.5); IMMATURE GRAN ABSOLUTE AUTO 0.04 K/mm3 (0.00-0.10); IMMATURE GRAN PERCENT AUTO 0 % (0-1); LYMPHOCYTES ABSOLUTE AUTO 2.92 K/mm3 (0.84-5.20); LYMPHOCYTES PERCENT AUTO 25 % (21-46); MONOCYTES ABSOLUTE AUTO 0.96 K/mm3 (0.16-1.47); MONOCYTES PERCENT AUTO 8 % (4-13); Mean Corpuscular HGB 30.9 pg (26.0-34.0); Mean Corpuscular HGB Conc 35.2 g/dL (31.5-36.5); Mean Corpuscular Volume 88 fL (80-100); Mean Platelet Volume 8.7 fL (9.1-12.4); NEUTROPHILS ABSOLUTE AUTO 7.72 K/mm3 (1.96-9.15); NEUTROPHILS PERCENT AUTO 65 % (41-73); Platelet Count 308 K/mm3 (150-400); RDW Coefficient Variation 11.9 % (11.7-14.2); RDW Standard Deviation 38.3 fL (35.1-46.3); Red Blood Cell Count 5.56 M/mm3 (4.30-5.90); White Blood Cell Count 11.84 K/mm3 (4.00-11.30)
[2023-12-20 13:27] LABS: Ethanol (Alcohol), Blood, Med <3 mg/dL; Salicylate <1.7 mg/dL (2.8-20.0)
[2023-12-20 13:45] LABS: Alanine Aminotransfer (ALT/SGP 35 U/L (12-78); Albumin, Blood 3.6 g/dL (3.4-5.0); Albumin/Globulin Ratio 0.9 (0.8-1.8); Alk Phos 98 U/L (50-136); Anion Gap 10 mmol/L (3-11); Aspartate Aminotrans (AST/SGOT 21 U/L (12-37); Bilirubin, Total 0.5 mg/dL (0.1-1.0); Blood Urea Nitrogen 13 mg/dL (8-24); Bun/Creatinine Ratio 18.3 (12.0-20.0); CO2, Blood 25 mmol/L (21-32); Calcium, Blood 9.4 mg/dL (8.5-10.1); Chloride, Blood 107 mmol/L (98-108); Creatinine, Blood 0.71 mg/dL (0.60-1.20); Globulin, Blood 4.1 g/dL (2.2-4.0); Glomerular Filtration Rate 106 (60-); Glucose, Blood 226 mg/dL (70-99); Potassium, Blood 4.2 mmol/L (3.5-5.5); Sodium, Blood 138 mmol/L (136-145); Total Protein, Blood 7.7 g/dL (6.4-8.2)
[2023-12-20 13:46] LABS: Acetaminophen, Random <2.0 ug/mL (10.0-30.0)
[2023-12-20 18:15] LABS: Source, Urine Clean Catch
[2023-12-20 18:18] LABS: Appearance, Urine Clear (Clear); Bilirubin, Urine Neg (Neg); Blood, Urine Neg (Neg); Color, Urine Yellow (P-Yellow); Glucose Qualitative, Urine 4+ (Neg); Ketones, Urine Neg (Neg); Leukocyte Esterase, Urine Neg (Neg); Nitrite, Urine Neg (Neg); Protein, Urine 1+ (Neg); Urobilinogen, Urine NORM (Normal)
[2023-12-20 18:33] LABS: U Amphetamine Screen Not Detected; U Barbituate Screen Not Detected; U Benzodiazapine Screen Not Detected; U Buprenorphine Screen Not Detected; U Cannabinoids Screen Not Detected; U Cocaine Screen Not Detected; U Methadone Screen Not Detected; U Methamphetamine Screen Not Detected; U Opiates Screen Not Detected; U Oxycodone Screen Not Detected; U Phencyclidine Screen Not Detected
[2023-12-20 19:15] VITALS: BP 147/101
[2023-12-20] MEDS ORDERED: OLANZapine ODT 10 MG Tab PO SCH (21:00)
[2023-12-20] MEDS ORDERED: Melatonin 5 MG Tablet PO SCH (21:00)
[2023-12-20] MEDS ORDERED: TraZODone HCl 100 MG Tab PO SCH (21:00)
[2023-12-20] MEDS ORDERED: BuPROPion HCl SR 100 MG TabCR PO SCH (21:00)
[2023-12-20] MEDS ORDERED: HydrOXYzine Pamoate 50 MG Cap PO SCH (21:00)
[2023-12-21] MEDS ORDERED: BusPIRone HCl 10 MG Tab PO SCH ×2 (02:00→08:00)
== END 2023-12-20 21:42 | disposition other institution (70) ==
LOC: ER 11:30 → EOR 11:31
PROVIDERS: Physician Assistant; ADMIT Student in an Organized Health Care Education/Training Program
DX: F25.1 Schizoaffective disorder, depressive type (principal); R45.851 Suicidal ideations; G89.29 Other chronic pain; M54.50 Low back pain, unspecified; E11.9 Type 2 diabetes mellitus without complications; E78.5 Hyperlipidemia, unspecified; K21.9 Gastro-esophageal reflux disease without esophagitis; I10 Essential (primary) hypertension; Z88.8 Allergy status to other drugs, medicaments and biological substances; Z88.0 Allergy status to penicillin; Z88.5 Allergy status to narcotic agent; Z79.899 Other long term (current) drug therapy; Z79.84 Long term (current) use of oral hypoglycemic drugs; Z87.891 Personal history of nicotine dependence
CPT/HCPCS: 80053; 80320; 85025; 93005; 93010; 99285; G0378; G0480

== ENCOUNTER 2023-12-20 15:45 | Inpatient (IN) | payer OTHER ==
[2023-12-20] MEDS ORDERED: Acetaminophen 325 MG TABLET PO PRN (21:20)
[2023-12-20] MEDS ORDERED: Aluminum Hydroxide 320MG/5ML 473 ML PO PRN (21:20)
[2023-12-20] MEDS ORDERED: FLU VACC TS2024-25(6MOS UP)/PF 45 MCG/0.5 ML SYRINGE IM SCH (21:20)
[2023-12-20] MEDS ORDERED: Albuterol 2.5 MG/3 ML VIAL INH SCH (21:30)
[2023-12-20] MEDS ORDERED: Mometasone/Formoterol MDI 100/5 mcg 13 GM INH SCH (21:40)
[2023-12-20] MEDS ORDERED: BusPIRone HCl 5 MG Tab PO ONE (22:20)
[2023-12-20] MEDS ORDERED: Tamsulosin HCl 0.4 MG Cap PO ONE (22:25)
[2023-12-20] MEDS ORDERED: TraZODone HCl 100 MG Tab PO ONE (22:30)
[2023-12-20] MEDS ORDERED: BusPIRone HCl 10 MG Tab PO ONE (22:30)
[2023-12-21 02:15] VITALS: BP 151/111
--- NOTE | 2023-12-21 04:13 | NUR ---
PATIENT ARRIVED ON UNIT AT 2144. HE WAS ADMITTED, THEN HAD A SNACK AND EVENING MEDICATIONS, AND WENT TO BED. HE WAS NOTED TO BE RESTING QUIETLY WITH EYES CLOSED AND RESPIRATIONS CONFIRMED THROUGHOUT THE NIGHT. HE SLEPT ON TOP OF THE BLANKETS BY CHOICE. HE STATED "I FEEL LIKE COMMITTING SUICIDE, BUT I FEEL SAFE AND COMFORTABLE HERE". HE DENIED SI WHILE AT THE [facility]. HIS MAJOR CONCERN IS LACK OF HOUSING, WHICH MAKES HIM DEPRESSED AND "MAKES MY PTSD ACT UP".
[2023-12-21] MEDS ORDERED: GlipiZIDE 10 MG Tab PO SCH (07:30)
[2023-12-21] MEDS ORDERED: MetFORMIN HCl 500 mg PO SCH (08:00)
[2023-12-21 08:11] VITALS: BP 136/98
[2023-12-21] MEDS ORDERED: buPROPion HCL 150 MG TAB.SR.12H PO SCH (09:00)
[2023-12-21] MEDS ORDERED: BusPIRone HCl 10 MG Tab PO SCH (09:00)
[2023-12-21] MEDS ORDERED: Lisinopril 20 MG Tab PO SCH (09:00)
[2023-12-21] MEDS ORDERED: Multivitamins 1 Tab PO SCH (09:00)
--- NOTE | 2023-12-21 15:44 | NUR ---
PT ENDORSED SI IF HE WAS OUT OF THIS UNIT, HE HAS A PLAN FOR JUMPING OFF OF A PARKING GARAGE IN [facility].
[2023-12-21] MEDS ORDERED: Ondansetron 4 MG TAB PO PRN (16:45)
[2023-12-21] MEDS ORDERED: Ondansetron 4 MG TAB PO ONE (16:45)
[2023-12-21] MEDS ORDERED: SEMAGLUTIDE 0.25 MG SC SCH (18:00)
--- NOTE | 2023-12-21 18:28 | NUR ---
PT HAS BEEN LAYING IN BED ALL DAY. HE REPORTED THAT HE DIDN'T FEEL GOOD. ZOFRAN GIVEN [id number] FOR COMPLAINT OF NAUSEA. MED WAS EFFECTIVE.
[2023-12-21 20:05] VITALS: BP 114/83
[2023-12-21] MEDS ORDERED: TraZODone HCl 100 MG Tab PO SCH (21:00)
[2023-12-21] MEDS ORDERED: Tamsulosin HCl 0.4 MG Cap PO SCH (21:00)
--- NOTE | 2023-12-22 06:00 | NUR ---
Patient spent the evening resting in his room. He was cooperative with assessment. He took his medication without issue. He denied new concerns at this time. He is able to make his needs known. Plan of care ongoing. He appeared to sleep for 10.5 hours.
[2023-12-22 07:56] VITALS: BP 122/78
--- NOTE | 2023-12-22 17:24 | NUR ---
SHIFT SUMMARY PT AxOx4. COOPERATIVE WITH CARE, BUT DISENGAGED. PT REPORTS FEELING SUICIDAL, DEPRESSED AND ANXIOUS TODAY, BUT DENIES INTENT AT THIS TIME. PT IS FOLLOWING CARE PLAN THIS SHIFT INCLUDING TAKING MEDICATIONS PRESCRIBED AND ATTENDING GROUPS. HE DOES NOT MINGLE ON THE UNIT MUCH OTHERWISE. HE SPENDS MOST OF HIS FREE TIME ON HIS BED. PT IS EXPECTED TO DC TOMORROW. [facility] ACT TEAM RN, ADELAIDA, IN TODAY TO ENGAGE IN DC PLANS. [facility] ARRANGING TRANSPORT FOR TOMORROW AFTERNOON. PT IS CURRENTLY SITTING IN [place] EATING DINNER. DENIES ANY NEEDS AT THIS TIME.
[2023-12-22 20:51] VITALS: BP 150/95
--- NOTE | 2023-12-23 05:31 | NUR ---
Patient spent most of the evening resting in bed. He was cooperative with assessment. He took his medication without issue. He denied new concerns at this time. He is able to make his needs known. Plan of care ongoing. He approached the nurses station around 0040 complaining of nausea. He requested and was provided a PRN which was ineffective. Around 0245 he was provided with crackers and lemon-kashia soda. Around 0330, he reported that he had vomited and requested a shower. He was allowed to use the ADA shower so as to not disturb his roommate. After his shower, he returned to his room to rest. He appeared to be sleeping for 6 hours.
[2023-12-23 08:36] VITALS: BP 124/93
--- NOTE | 2023-12-23 13:01 | NUR ---
PATIENT BELONGINGS AND SAFE ITEMS RETURNED
--- NOTE | 2023-12-23 13:05 | NUR ---
NURSING DISCHARGE NOTE. PT AA&X4. HE IS QUIET AND COOPERATIVE WITH CARE. HE REPORTS ANXIETY WITH DISCHARGE TODAY. PT EDUCATED ON DISCHARGE WITH WARM HAND OFF TO ACT TEAM PT EDUCATED ON MEDICATIONS, RESOURCES, AND MENTAL HEALTH DX. WRITTEN AND VERBAL INSTUCTIONS GIVEN. PT VERBALIZED UNDERSTANDING AND DENIED QUESTIONS. ACT TEAM TO PLATE MAKER PATIENT FOR WARM HANDOFF
[2023-12-24] MEDS ORDERED: ONDA4ODT MM (21:20)
[2023-12-24] MEDS ORDERED: OMEP20ER PO (21:20)
== END 2023-12-23 13:25 | disposition home or self-care (01) | DRG 885 ==
LOC: BHU 15:45
PROVIDERS: ADMIT Student in an Organized Health Care Education/Training Program
DX: F25.1 Schizoaffective disorder, depressive type (principal); Z88.0 Allergy status to penicillin; Z88.8 Allergy status to other drugs, medicaments and biological substances; Z88.4 Allergy status to anesthetic agent; Z91.011 Allergy to milk products; Z79.84 Long term (current) use of oral hypoglycemic drugs; Z79.899 Other long term (current) drug therapy
CPT/HCPCS: 82947; A9270

== ENCOUNTER 2023-12-24 16:58 | Emergency (ER) | payer OTHER ==
[~2023-12-24] VITALS: Ht 172.7 cm; Wt 108.9 kg
[2023-12-24 17:08] VITALS: BP 136/93
[2023-12-24] MEDS ORDERED: Ondansetron HCl 2 MG / ML 2ML Vial IV ONE (17:35)
[2023-12-24 17:44] LABS: BASOPHILS ABSOLUTE AUTO 0.03 K/mm3 (0.00-0.23); BASOPHILS PERCENT AUTO 0 % (0-2); EOSINOPHILS ABSOLUTE AUTO 0.01 K/mm3 (0.00-0.68); EOSINOPHILS PERCENT AUTO 0 % (0-6); Hematocrit 45.8 % (37.0-53.0); IMMATURE GRAN ABSOLUTE AUTO 0.07 K/mm3 (0.00-0.10); IMMATURE GRAN PERCENT AUTO 1 % (0-1); LYMPHOCYTES ABSOLUTE AUTO 1.79 K/mm3 (0.84-5.20); LYMPHOCYTES PERCENT AUTO 12 % (21-46); MONOCYTES ABSOLUTE AUTO 0.58 K/mm3 (0.16-1.47); MONOCYTES PERCENT AUTO 4 % (4-13); Mean Corpuscular HGB 30.5 pg (26.0-34.0); Mean Corpuscular HGB Conc 34.9 g/dL (31.5-36.5); Mean Corpuscular Volume 87 fL (80-100); Mean Platelet Volume 8.6 fL (9.1-12.4); NEUTROPHILS ABSOLUTE AUTO 12.14 K/mm3 (1.96-9.15); NEUTROPHILS PERCENT AUTO 83 % (41-73); Platelet Count 350 K/mm3 (150-400); RDW Coefficient Variation 11.9 % (11.7-14.2); RDW Standard Deviation 38.2 fL (35.1-46.3); Red Blood Cell Count 5.24 M/mm3 (4.30-5.90); White Blood Cell Count 14.62 K/mm3 (4.00-11.30)
[2023-12-24 17:48] LABS: Base Excess Venous 3.4 mmol/L; Bicarbonate Venous 28.4 mmol/L (24.0-30.0); PCO2 Venous 28.4 mmHg (38-42)
[2023-12-24 17:49] LABS: pH Blood Venous 7.56 (7.34-7.37)
[2023-12-24 18:05] LABS: Albumin, Blood 4.2 g/dL (3.4-5.0); Bilirubin, Total 0.9 mg/dL (0.1-1.0); Bun/Creatinine Ratio 21.4 (12.0-20.0); Calcium, Blood 9.7 mg/dL (8.5-10.1); Creatinine, Blood 0.89 mg/dL (0.60-1.20); Potassium, Blood 3.9 mmol/L (3.5-5.5); Total Protein, Blood 8.2 g/dL (6.4-8.2)
[2023-12-24] MEDS ORDERED: Lactated Ringer's 1,000 ML IV ONE (19:10)
[2023-12-24] MEDS ORDERED: Labetalol HCL 5 MG/ML 4ML Injection (Single Dose) IV ONE (19:20)
[2023-12-24 20:54] LABS: Source, Urine Clean Catch
[2023-12-24 20:59] LABS: Appearance, Urine Clear (Clear); Bilirubin, Urine Neg (Neg); Blood, Urine 1+ (Neg); Color, Urine Yellow (P-Yellow); Glucose Qualitative, Urine 4+ (Neg); Ketones, Urine 4+ (Neg); Leukocyte Esterase, Urine Neg (Neg); Nitrite, Urine Neg (Neg); Protein, Urine 2+ (Neg); Specific Gravity, Urine 1.015 (1.003-1.022); Urobilinogen, Urine NORM (Normal); pH, Urine 6.5 (5.0-8.0)
[2023-12-24 21:10] LABS: Bacteria Few /hpf; Squamous Epithelial Cells Rare /hpf (Few); White Blood Cells, Urine 0-2 /hpf (0-5)
[2023-12-24] MEDS ORDERED: OMEP20ER PO (21:20)
[2023-12-24] MEDS ORDERED: Omeprazole 20 MG CapCR PO ONE (21:20)
[2023-12-24] MEDS ORDERED: ONDA4ODT MM (21:20)
== END 2023-12-24 21:25 | disposition home or self-care (01) ==
LOC: ER 16:58
PROVIDERS: Physician Assistant; Student in an Organized Health Care Education/Training Program
DX: R11.2 Nausea with vomiting, unspecified (principal); K21.9 Gastro-esophageal reflux disease without esophagitis; K80.20 Calculus of gallbladder without cholecystitis without obstruction; R10.13 Epigastric pain; I10 Essential (primary) hypertension; E11.9 Type 2 diabetes mellitus without complications; Z88.0 Allergy status to penicillin; Z88.8 Allergy status to other drugs, medicaments and biological substances; Z79.899 Other long term (current) drug therapy; Z79.84 Long term (current) use of oral hypoglycemic drugs; Z87.891 Personal history of nicotine dependence
CPT/HCPCS: 74176; 80053; 81001; 82803; 83690; 84484; 85025; 93005; 93010; 96361; 96374; 96375; 99284-25; A9270; J2405; J7120

== ENCOUNTER 2024-01-18 15:25 | Observation (INO) | payer OTHER ==
[~2024-01-18] VITALS: Ht 172.7 cm; Wt 108.9 kg
[2024-01-18 18:05] LABS: BASOPHILS ABSOLUTE AUTO 0.03 K/mm3 (0.00-0.23); BASOPHILS PERCENT AUTO 0 % (0-2); EOSINOPHILS ABSOLUTE AUTO 0.33 K/mm3 (0.00-0.68); EOSINOPHILS PERCENT AUTO 3 % (0-6); Hematocrit 44.6 % (37.0-53.0); Hemoglobin 15.6 g/dL (13.5-17.5); IMMATURE GRAN ABSOLUTE AUTO 0.06 K/mm3 (0.00-0.10); IMMATURE GRAN PERCENT AUTO 1 % (0-1); LYMPHOCYTES ABSOLUTE AUTO 3.13 K/mm3 (0.84-5.20); LYMPHOCYTES PERCENT AUTO 31 % (21-46); MONOCYTES ABSOLUTE AUTO 0.99 K/mm3 (0.16-1.47); MONOCYTES PERCENT AUTO 10 % (4-13); Mean Corpuscular HGB 31.1 pg (26.0-34.0); Mean Corpuscular Volume 89 fL (80-100); Mean Platelet Volume 8.4 fL (9.1-12.4); NEUTROPHILS ABSOLUTE AUTO 5.54 K/mm3 (1.96-9.15); NEUTROPHILS PERCENT AUTO 55 % (41-73); Platelet Count 276 K/mm3 (150-400); RDW Coefficient Variation 12.5 % (11.7-14.2); RDW Standard Deviation 40.6 fL (35.1-46.3); Red Blood Cell Count 5.01 M/mm3 (4.30-5.90); White Blood Cell Count 10.08 K/mm3 (4.00-11.30)
[2024-01-18 18:30] LABS: Ethanol (Alcohol), Blood, Med <3 mg/dL
[2024-01-18 18:38] LABS: Acetaminophen, Random <2.0 ug/mL (10.0-30.0); Alanine Aminotransfer (ALT/SGP 23 U/L (12-78); Albumin, Blood 3.5 g/dL (3.4-5.0); Albumin/Globulin Ratio 0.9 (0.8-1.8); Alk Phos 85 U/L (50-136); Anion Gap 10 mmol/L (3-11); Aspartate Aminotrans (AST/SGOT 15 U/L (12-37); Bilirubin, Total 0.6 mg/dL (0.1-1.0); Blood Urea Nitrogen 9 mg/dL (8-24); Bun/Creatinine Ratio 13.8 (12.0-20.0); CO2, Blood 28 mmol/L (21-32); Chloride, Blood 105 mmol/L (98-108); Creatinine, Blood 0.65 mg/dL (0.60-1.20); Globulin, Blood 3.8 g/dL (2.2-4.0); Glomerular Filtration Rate 108 (60-); Glucose, Blood 133 mg/dL (70-99); Potassium, Blood 3.9 mmol/L (3.5-5.5); Salicylate <1.7 mg/dL (2.8-20.0); Sodium, Blood 139 mmol/L (136-145); Total Protein, Blood 7.3 g/dL (6.4-8.2)
[2024-01-18] MEDS ORDERED: Acetaminophen 500 MG Tab PO ONE (18:55)
[2024-01-18 19:56] LABS: Source, Urine Voided
[2024-01-18 20:00] LABS: Appearance, Urine Hazy (Clear); Bilirubin, Urine Neg (Neg); Blood, Urine Neg (Neg); Color, Urine Yellow (P-Yellow); Glucose Qualitative, Urine 2+ (Neg); Ketones, Urine Neg (Neg); Leukocyte Esterase, Urine Neg (Neg); Nitrite, Urine Neg (Neg); Protein, Urine 1+ (Neg); Specific Gravity, Urine 1.025 (1.003-1.022); Urobilinogen, Urine NORM (Normal)
[2024-01-18 20:11] LABS: Amorphous Light (0-Heavy); Mucus Light (0-Heavy); Red Blood Cells, Urine 0-2 /hpf (0-2); Spermatozoa Many /hpf; Squamous Epithelial Cells Few /hpf (Few); Transitional Epithelial Cells Rare /hpf (0-Rare)
[2024-01-18 20:12] LABS: Bacteria Mod /hpf
[2024-01-18 20:17] LABS: U Amphetamine Screen Not Detected; U Barbituate Screen Not Detected; U Benzodiazapine Screen Not Detected; U Buprenorphine Screen Not Detected; U Cannabinoids Screen Not Detected; U Cocaine Screen Not Detected; U Methadone Screen Not Detected; U Methamphetamine Screen Not Detected; U Opiates Screen Not Detected; U Oxycodone Screen Not Detected; U Phencyclidine Screen Not Detected
[2024-01-18] MEDS ORDERED: Acetaminophen 325 MG TABLET PO ONE (22:50)
[2024-01-18 23:43] LABS: Influenza A, PCR NEGATIVE (NEGATIVE); Influenza B, PCR NEGATIVE (NEGATIVE); Resp Syncytial Virus, PCR NEGATIVE (NEGATIVE); SARS-Cov-2 (COVID-19) PCR, MMC NEGATIVE (NEGATIVE)
[2024-01-19] MEDS ORDERED: FUROSEMIDE20 MG PO (02:29)
[2024-01-19] MEDS ORDERED: ZOLP5 PO (02:31)
[2024-01-19] MEDS ORDERED: CYCL10 PO (02:32)
[2024-01-19] MEDS ORDERED: Acetaminophen 325 MG TABLET PO ONE (09:20)
[2024-01-19] MEDS ORDERED: Furosemide 20 MG Tab PO ONE (13:40)
[2024-01-19] MEDS ORDERED: buPROPion HCL 150 MG TAB.SR.12H PO SCH (13:40)
[2024-01-19] MEDS ORDERED: BusPIRone HCl 10 MG Tab PO SCH (13:40)
[2024-01-19] MEDS ORDERED: GlipiZIDE 10 MG Tab PO SCH (13:45)
[2024-01-19] MEDS ORDERED: LATUDA40 M1 PO (13:45)
[2024-01-19] MEDS ORDERED: PRAV20 PO (13:46)
[2024-01-19] MEDS ORDERED: TAMS.4ER PO (13:46)
[2024-01-19] MEDS ORDERED: PANT40 PO (13:46)
[2024-01-19] MEDS ORDERED: Lisinopril 20 MG Tab PO SCH (13:50)
[2024-01-19] MEDS ORDERED: Pravastatin Sodium 20 MG Tab PO SCH (13:50)
[2024-01-19] MEDS ORDERED: Tamsulosin HCl 0.4 MG Cap PO SCH (13:55)
[2024-01-19] MEDS ORDERED: MetFORMIN HCl 500 mg PO SCH (13:55)
[2024-01-19] MEDS ORDERED: Pantoprazole Sodium 40 MG Tab PO SCH (16:30)
[2024-01-19] MEDS ORDERED: Zolpidem Tartrate 5 MG Tab PO SCH (21:00)
[2024-01-19] MEDS ORDERED: TraZODone HCl 50 MG Tab PO SCH (21:00)
[2024-01-20] MEDS ORDERED: Acetaminophen 500 MG Tab PO ONE (08:00)
[2024-01-20] MEDS ORDERED: Furosemide 20 MG Tab PO SCH (09:00)
[2024-01-20] MEDS ORDERED: HyDROXyzine HCl 25 MG Tab PO SCH (09:00)
[2024-01-20] MEDS ORDERED: Atenolol 50 MG Tab PO SCH (09:00)
[2024-01-20 09:49] VITALS: BP 146/100
== END 2024-01-20 16:16 | disposition other institution (70) ==
LOC: ER 15:25 → EOR 15:26
PROVIDERS: Student in an Organized Health Care Education/Training Program; ADMIT Student in an Organized Health Care Education/Training Program
DX: F25.1 Schizoaffective disorder, depressive type (principal); R45.851 Suicidal ideations; I10 Essential (primary) hypertension; G89.29 Other chronic pain; M54.50 Low back pain, unspecified; E11.9 Type 2 diabetes mellitus without complications; E78.5 Hyperlipidemia, unspecified; E55.9 Vitamin D deficiency, unspecified; F12.29 Cannabis dependence with unspecified cannabis-induced disorder; Z59.00 Homelessness unspecified; Z88.0 Allergy status to penicillin; Z88.5 Allergy status to narcotic agent; Z88.8 Allergy status to other drugs, medicaments and biological substances; Z91.011 Allergy to milk products; Z91.041 Radiographic dye allergy status; Z79.899 Other long term (current) drug therapy; Z79.84 Long term (current) use of oral hypoglycemic drugs; Z87.891 Personal history of nicotine dependence
CPT/HCPCS: 0241U; 80053; 80320; 81001; 82947; 84484; 85025; 93005; 93010; 99285-25; A9270; G0378; G0480

== ENCOUNTER 2024-04-09 09:08 | Emergency (ER) | payer OTHER ==
[~2024-04-09] VITALS: Ht 172.7 cm; Wt 113.4 kg
[~2024-04-09 09:08] MED LIST changes: +FUROSEMIDE20 MG PO; +LATUDA40 M1 PO; -MELA3 PO; +MELATONIN5 M1 PO; +PANT40 PO; +PRAV20 PO; +ZOLP5 PO
[2024-04-09 10:26] LABS: BASOPHILS ABSOLUTE AUTO 0.06 K/mm3 (0.00-0.23); BASOPHILS PERCENT AUTO 1 % (0-2); EOSINOPHILS ABSOLUTE AUTO 0.18 K/mm3 (0.00-0.68); EOSINOPHILS PERCENT AUTO 2 % (0-6); Hematocrit 43.5 % (37.0-53.0); Hemoglobin 15.4 g/dL (13.5-17.5); IMMATURE GRAN ABSOLUTE AUTO 0.05 K/mm3 (0.00-0.10); IMMATURE GRAN PERCENT AUTO 1 % (0-1); LYMPHOCYTES ABSOLUTE AUTO 2.13 K/mm3 (0.84-5.20); LYMPHOCYTES PERCENT AUTO 24 % (21-46); MONOCYTES ABSOLUTE AUTO 0.77 K/mm3 (0.16-1.47); MONOCYTES PERCENT AUTO 9 % (4-13); Mean Corpuscular HGB 30.1 pg (26.0-34.0); Mean Corpuscular HGB Conc 35.4 g/dL (31.5-36.5); Mean Corpuscular Volume 85 fL (80-100); Mean Platelet Volume 8.8 fL (9.1-12.4); NEUTROPHILS ABSOLUTE AUTO 5.83 K/mm3 (1.96-9.15); NEUTROPHILS PERCENT AUTO 65 % (41-73); Platelet Count 240 K/mm3 (150-400); RDW Coefficient Variation 11.9 % (11.7-14.2); RDW Standard Deviation 36.9 fL (35.1-46.3); Red Blood Cell Count 5.12 M/mm3 (4.30-5.90); White Blood Cell Count 9.02 K/mm3 (4.00-11.30)
[2024-04-09 10:37] LABS: Source, Urine Clean Catch
[2024-04-09 10:44] LABS: Appearance, Urine Clear (Clear); Bilirubin, Urine Neg (Neg); Blood, Urine Neg (Neg); Glucose Qualitative, Urine 4+ (Neg); Ketones, Urine Neg (Neg); Leukocyte Esterase, Urine Neg (Neg); Nitrite, Urine Neg (Neg); Protein, Urine Neg (Neg); Specific Gravity, Urine 1.015 (1.003-1.022); Urobilinogen, Urine NORM (Normal)
[2024-04-09 10:48] LABS: Albumin, Blood 3.5 g/dL (3.4-5.0); Albumin/Globulin Ratio 0.9 (0.8-1.8); Bilirubin, Total 0.5 mg/dL (0.1-1.0); Bun/Creatinine Ratio 18.6 (12.0-20.0); Calcium, Blood 9.1 mg/dL (8.5-10.1); Creatinine, Blood 0.7 mg/dL (0.60-1.20); Globulin, Blood 3.9 g/dL (2.2-4.0); Total Protein, Blood 7.4 g/dL (6.4-8.2)
[2024-04-09 10:55] LABS: Color, Urine Pale Yellow (P-Yellow)
[2024-04-09] MEDS ORDERED: Morphine Sulfate 4 MG/1 ML Injection IV ONE (10:55)
[2024-04-09] MEDS ORDERED: Ondansetron HCl 2 MG / ML 2ML Vial IV ONE (10:55)
[2024-04-09 13:00] LABS: CORONAVIRUS COVID-19 AG Negative (NEGATIVE); INFLUENZA A AG Negative (NEGATIVE); INFLUENZA B AG Negative (NEGATIVE)
[2024-04-09] MEDS ORDERED: ONDA4 PO (13:09)
[2024-04-09 13:18] VITALS: BP 132/99
[2024-04-12] MEDS ORDERED: AMLO5 PO (13:56)
[2024-04-12] MEDS ORDERED: ATOR10 PO (13:57)
[2024-04-12] MEDS ORDERED: BUSP10 PO (13:58)
[2024-04-12] MEDS ORDERED: DAPAGLIFLOZIN5 MG PO (14:00)
[2024-04-12] MEDS ORDERED: ESCI10 PO (14:01)
[2024-04-12] MEDS ORDERED: GLIP5 PO (14:02)
== END 2024-04-09 13:23 | disposition home or self-care (01) ==
LOC: ER 09:08
PROVIDERS: Student in an Organized Health Care Education/Training Program
DX: R11.2 Nausea with vomiting, unspecified (principal); R10.12 Left upper quadrant pain; I10 Essential (primary) hypertension; E11.9 Type 2 diabetes mellitus without complications; E78.5 Hyperlipidemia, unspecified; K21.9 Gastro-esophageal reflux disease without esophagitis; Z87.442 Personal history of urinary calculi; Z87.891 Personal history of nicotine dependence; Z88.6 Allergy status to analgesic agent; Z88.0 Allergy status to penicillin; Z91.018 Allergy to other foods; Z91.041 Radiographic dye allergy status; Z79.84 Long term (current) use of oral hypoglycemic drugs; Z79.85 Long-term (current) use of injectable non-insulin antidiabetic drugs; Z79.51 Long term (current) use of inhaled steroids; Z79.899 Other long term (current) drug therapy; Z59.89 Other problems related to housing and economic circumstances
CPT/HCPCS: 74176; 80053; 81003; 83690; 85025; 87428-QW; 96374; 96375; 99284-25; J2270; J2405

== ENCOUNTER 2024-05-01 11:22 | Day surgery (SDC) | payer OTHER ==
[2024-05-01] VITALS (12 sets, daily range): BP systolic 120–156; BP diastolic 88–103
[~2024-05-01] VITALS: Ht 172.7 cm; Wt 111.9 kg
[~2024-05-01 11:22] MED LIST changes: +AMLO5 PO; +ATOR10 PO; +BUSP10 PO; +DAPAGLIFLOZIN5 MG PO; +ESCI10 PO; +GLIP5 PO; +Indocyanine Green 25 MG Vial IV ONE; +Lactated Ringer's 1,000 ML IV SCH; +ONDA4 PO
[2024-05-01] MEDS ORDERED: Bupivacaine 0.5% HCl 5 MG/ML 30MLVIAL ONE (11:34)
[2024-05-01] MEDS ORDERED: Bupivacaine 0.5% W/EPI 1:200000 SDV 30 ML Vial ONE (11:45)
[2024-05-01] MEDS ORDERED: Ipratropium/Albuterol SulF 2.5-0.5MG/3 ML Amp INH ONE (12:05)
[2024-05-01] MEDS ORDERED: Insulin Human Regular 5 UNIT in NS 100 ML IV SCH (12:20)
[2024-05-01] MEDS ORDERED: Insulin Regular 100 UNIT/ML 10ML Vial IV ONE ×2 (12:20→13:50)
--- NOTE | 2024-05-01 12:24 | NUR ---
DR RUSSELL AND DR HERMAN NOTIFIED OF PT'S PRE OP BLOOD SUGAR OF 259. DR RUSSELL ORDERED 5UNITS OF REGULAR INSULIN IV NOW AND DR HERMAN ORDERED A BLOOD SUGAR TO BE RECHECKED ONE HOUR AFTER GIVING THE INSULIN IV. DR HERMAN ALSO NOTIFIED OF PT REPORTING OFF AND ON CHEST PAIN AND SHORTNESS OF BREATH. LAST ECHO DONE IN 04/06/2020. DR HERMAN ORDERED A PRE OP ECHO BE DONE BEFORE HEADING TO OR. DR HERMAN ALSO ORDERED A NEW 12 LEAD EKG.
[2024-05-01] MEDS ORDERED: BusPIRone HCl 10 MG Tab PO ONE (12:25)
--- NOTE | 2024-05-01 13:09 | NUR ---
[facility]ERSONHELEN AT BEDSIDE FOR STAT PARTIAL ECHO.
--- NOTE | 2024-05-01 13:19 | NUR ---
ASSUMED PT CARE BACK FROM JOSLYN Anderson RN. PT DENIES ANY NEEDS AT THIS TIME. HEADPHONES IN PLACE AND WATCHING TV. CALL LIGHT IN REACH. WILL CONTINUE TO MONITOR.
[2024-05-01] MEDS ORDERED: Insulin Human Regular 5 UNIT in NS 100 ML IV ONE (13:45)
--- NOTE | 2024-05-01 13:51 | NUR ---
DR HERMAN NOTIFIED OF BLOOD SUGAR OF 297. VERBAL ORDER GIVEN FOR 5UNITS REGULAR INSULIN IV X1 NOW. PT NOTIFIED OF RESULTS AND DENIES ANY FURTHER NEEDS AT THIS TIME.
[2024-05-01] MEDS ORDERED: Rocuronium Bromide 10 MG/ML 5ML Injection IV ONE ×2 (14:09→14:10)
[2024-05-01] MEDS ORDERED: propofoL 20 ML IV ONE (14:09)
[2024-05-01] MEDS ORDERED: FentaNYL Citrate 50 MCG/ML 2 ML Injection ONE ×2 (14:09→15:09)
[2024-05-01] MEDS ORDERED: Lidocaine HCl 2% 20 ML MDV ONE (14:09)
[2024-05-01] MEDS ORDERED: Phenylephrine HCl 100 MCG/ML-NS 10MLSYR (1MG/10ML) ONE (14:21)
[2024-05-01] MEDS ORDERED: Sugammadex Sodium 200 MG/2ML SDV (100 MG/ML) ONE (15:07)
[2024-05-01] MEDS ORDERED: Ondansetron HCl 2 MG / ML 2ML Vial ONE (15:07)
[2024-05-01] MEDS ORDERED: Haloperidol Lactate Inj. 5 MG/ML Injection IV PRN (15:10)
[2024-05-01] MEDS ORDERED: OxyCODONE HCL 5 MG TAB PO PRN (15:35)
--- NOTE | 2024-05-01 17:27 | NUR ---
Patient up to Ambulate independently. Gait steady. Discharge instructions reviewed with patient. Patient verbalizes understanding. Copy given to patient to take home. Patient States Post-Procedure ride home has been arranged. CAREGIVER RN WITH PT AND PROVIDING RIDE HOME.
== END 2024-05-01 17:21 | disposition home or self-care (01) ==
LOC: ORSCMMR 11:22 → ORD 12:30 → ORSCMMR 17:21
PROVIDERS: Surgery
PROC: 8E0W4CZ Robotic Assisted Procedure of Trunk Region, Percutaneous Endoscopic Approach (ICD-10-PCS; principal; 2024-05-01 12:30)
PROC: 0FT44ZZ Resection of Gallbladder, Percutaneous Endoscopic Approach (ICD-10-PCS; principal; 2024-05-01 12:30)
DX: K80.20 Calculus of gallbladder without cholecystitis without obstruction (principal); E11.9 Type 2 diabetes mellitus without complications; I10 Essential (primary) hypertension; E78.5 Hyperlipidemia, unspecified; J45.909 Unspecified asthma, uncomplicated; J44.9 Chronic obstructive pulmonary disease, unspecified; F25.0 Schizoaffective disorder, bipolar type; F43.10 Post-traumatic stress disorder, unspecified; Z79.899 Other long term (current) drug therapy; Z79.84 Long term (current) use of oral hypoglycemic drugs; Z79.4 Long term (current) use of insulin; Z79.85 Long-term (current) use of injectable non-insulin antidiabetic drugs; K21.9 Gastro-esophageal reflux disease without esophagitis
CPT/HCPCS: 82947; 88304; 93005; 93010; 93308; 93321; A9270; J1815; J2371; J2405; J2704; J3010; J7120

== ENCOUNTER 2024-05-05 01:34 | Emergency (ER) | payer OTHER ==
[~2024-05-05] VITALS: Ht 172.7 cm; Wt 127.0 kg
[~2024-05-05 01:34] MED LIST changes: -Indocyanine Green 25 MG Vial IV ONE; -Lactated Ringer's 1,000 ML IV SCH
[2024-05-05] MEDS ORDERED: NS 1,000 ML IV SCH (01:55)
[2024-05-05] MEDS ORDERED: Ondansetron HCl 2 MG / ML 2ML Vial IV ONE (01:55)
[2024-05-05] MEDS ORDERED: Morphine Sulfate 4 MG/1 ML Injection IV ONE ×3 (01:55→05:30)
[2024-05-05 02:28] LABS: Base Excess Venous 1.1 mmol/L; Bicarbonate Venous 25.2 mmol/L (24.0-30.0); PCO2 Venous 42 mmHg (38-42)
[2024-05-05 02:31] LABS: BASOPHILS ABSOLUTE AUTO 0.06 K/mm3 (0.00-0.23); BASOPHILS PERCENT AUTO 1 % (0-2); EOSINOPHILS PERCENT AUTO 2 % (0-6); Hematocrit 40.6 % (37.0-53.0); Hemoglobin 14.3 g/dL (13.5-17.5); IMMATURE GRAN ABSOLUTE AUTO 0.05 K/mm3 (0.00-0.10); IMMATURE GRAN PERCENT AUTO 1 % (0-1); LYMPHOCYTES PERCENT AUTO 29 % (21-46); MONOCYTES ABSOLUTE AUTO 0.89 K/mm3 (0.16-1.47); MONOCYTES PERCENT AUTO 9 % (4-13); Mean Corpuscular HGB Conc 35.2 g/dL (31.5-36.5); Mean Corpuscular Volume 88 fL (80-100); Mean Platelet Volume 8.8 fL (9.1-12.4); NEUTROPHILS ABSOLUTE AUTO 5.53 K/mm3 (1.96-9.15); NEUTROPHILS PERCENT AUTO 59 % (41-73); Platelet Count 207 K/mm3 (150-400); RDW Coefficient Variation 12.8 % (11.7-14.2); RDW Standard Deviation 40.8 fL (35.1-46.3); Red Blood Cell Count 4.62 M/mm3 (4.30-5.90); White Blood Cell Count 9.43 K/mm3 (4.00-11.30)
[2024-05-05 03:05] LABS: Alanine Aminotransfer (ALT/SGP 34 U/L (12-78); Albumin, Blood 3.1 g/dL (3.4-5.0); Albumin/Globulin Ratio 0.9 (0.8-1.8); Alk Phos 104 U/L (50-136); Aspartate Aminotrans (AST/SGOT 23 U/L (12-37); Bilirubin, Direct <0.1 mg/dL (0.0-0.3); Bilirubin, Total 0.3 mg/dL (0.1-1.0); Blood Urea Nitrogen 7 mg/dL (8-24); Bun/Creatinine Ratio 10.1 (12.0-20.0); Calcium, Blood 9.3 mg/dL (8.5-10.1); Creatinine, Blood 0.69 mg/dL (0.60-1.20); Globulin, Blood 3.6 g/dL (2.2-4.0); Glomerular Filtration Rate 106 (60-); Glucose, Blood 382 mg/dL (70-99); Total Protein, Blood 6.7 g/dL (6.4-8.2)
[2024-05-05 03:07] LABS: Bilirubin, Indirect Unable to Calculate mg/dL (0.1-0.7)
[2024-05-05 03:19] LABS: Beta-hydroxybutyrate 2.2 mg/dL (0.2-2.8)
[2024-05-05 03:54] LABS: Source, Urine Clean Catch
[2024-05-05 04:11] LABS: Sodium, Blood 137 mmol/L (136-145)
[2024-05-05 04:12] LABS: Anion Gap 12 mmol/L (3-11); CO2, Blood 24 mmol/L (21-32); Chloride, Blood 105 mmol/L (98-108); Potassium, Blood 3.8 mmol/L (3.5-5.5)
[2024-05-05 04:26] LABS: Bilirubin, Urine Neg (Neg); Blood, Urine Neg (Neg); Glucose Qualitative, Urine 4+ (Neg); Ketones, Urine Neg (Neg); Leukocyte Esterase, Urine Neg (Neg); Nitrite, Urine Neg (Neg); Protein, Urine Neg (Neg); Urobilinogen, Urine NORM (Normal)
[2024-05-05 04:43] LABS: Appearance, Urine Clear (Clear); Color, Urine Pale Yellow (P-Yellow)
[2024-05-05] MEDS ORDERED: DICY20 PO (05:53)
[2024-05-05] MEDS ORDERED: ONDA4 PO (05:53)
[2024-05-05 06:30] VITALS: BP 150/98
== END 2024-05-05 06:35 | disposition home or self-care (01) ==
LOC: ER 01:34
PROVIDERS: Student in an Organized Health Care Education/Training Program
DX: R16.1 Splenomegaly, not elsewhere classified (principal); E11.65 Type 2 diabetes mellitus with hyperglycemia; I10 Essential (primary) hypertension; E78.5 Hyperlipidemia, unspecified; F43.10 Post-traumatic stress disorder, unspecified; K21.9 Gastro-esophageal reflux disease without esophagitis; Z87.891 Personal history of nicotine dependence; Z79.84 Long term (current) use of oral hypoglycemic drugs; Z79.899 Other long term (current) drug therapy; Z88.6 Allergy status to analgesic agent; Z88.0 Allergy status to penicillin; Z88.5 Allergy status to narcotic agent
CPT/HCPCS: 74177; 80048; 80076; 81003; 82010; 82803; 83690; 85025; 96361; 96374-59; 96375; 96376; 99284-25; J2270; J2405; J7030; Q9967

== ENCOUNTER 2024-05-17 08:13 | Emergency (ER) | payer OTHER ==
[~2024-05-17] VITALS: Ht 172.7 cm; Wt 108.9 kg
[~2024-05-17 08:13] MED LIST changes: +DICY20 PO
[2024-05-17 08:56] VITALS: BP 121/93
[2024-05-17] MEDS ORDERED: TRAM50 PO (08:58)
[2024-05-17] MEDS ORDERED: AMOCLA875 PO (08:58)
== END 2024-05-17 08:58 | disposition home or self-care (01) ==
LOC: ER 08:13
DX: K04.7 Periapical abscess without sinus (principal); K02.9 Dental caries, unspecified; I10 Essential (primary) hypertension; K21.9 Gastro-esophageal reflux disease without esophagitis; Z87.891 Personal history of nicotine dependence
CPT/HCPCS: 99282

== ENCOUNTER 2024-06-22 03:20 | Emergency (ER) | payer OTHER ==
[~2024-06-22] VITALS: Ht 172.7 cm; Wt 108.9 kg
[2024-06-22 03:34] VITALS: BP 157/118
[2024-06-22] MEDS ORDERED: Cleocin HCl150 MG PO (04:33)
[2024-06-22] MEDS ORDERED: Clindamycin HCl 150 MG Cap PO ONE (04:35)
== END 2024-06-22 04:40 | disposition home or self-care (01) ==
LOC: ER 03:20
DX: K04.7 Periapical abscess without sinus (principal); I10 Essential (primary) hypertension; F43.10 Post-traumatic stress disorder, unspecified; K21.9 Gastro-esophageal reflux disease without esophagitis; E11.9 Type 2 diabetes mellitus without complications; E78.5 Hyperlipidemia, unspecified; Z87.891 Personal history of nicotine dependence; Z79.899 Other long term (current) drug therapy; Z79.84 Long term (current) use of oral hypoglycemic drugs; Z88.6 Allergy status to analgesic agent; Z88.0 Allergy status to penicillin; Z88.5 Allergy status to narcotic agent; Z88.8 Allergy status to other drugs, medicaments and biological substances
CPT/HCPCS: 99282; A9270

== ENCOUNTER 2024-10-24 16:06 | Emergency (ER) | payer OTHER ==
[~2024-10-24] VITALS: Ht 172.7 cm; Wt 113.4 kg
[2024-10-24 16:11] VITALS: BP 117/90
[2024-10-24] MEDS ORDERED: NS 1,000 ML IV SCH (17:55)
[2024-10-24 18:12] LABS: BASOPHILS ABSOLUTE AUTO 0.07 K/mm3 (0.00-0.23); BASOPHILS PERCENT AUTO 1 % (0-2); EOSINOPHILS ABSOLUTE AUTO 0.16 K/mm3 (0.00-0.68); EOSINOPHILS PERCENT AUTO 2 % (0-6); Hematocrit 43.1 % (37.0-53.0); Hemoglobin 15.8 g/dL (13.5-17.5); IMMATURE GRAN ABSOLUTE AUTO 0.04 K/mm3 (0.00-0.10); IMMATURE GRAN PERCENT AUTO 0 % (0-1); LYMPHOCYTES ABSOLUTE AUTO 3.39 K/mm3 (0.84-5.20); LYMPHOCYTES PERCENT AUTO 35 % (21-46); MONOCYTES ABSOLUTE AUTO 0.85 K/mm3 (0.16-1.47); MONOCYTES PERCENT AUTO 9 % (4-13); Mean Corpuscular HGB Conc 36.7 g/dL (31.5-36.5); Mean Corpuscular Volume 83 fL (80-100); NEUTROPHILS ABSOLUTE AUTO 5.20 K/mm3 (1.96-9.15); NEUTROPHILS PERCENT AUTO 54 % (41-73); NRBC ABSOLUTE 0.00 K/mm3 (0.00-0.02); NRBC Auto 0.0 /100 WBC (0.0-0.2); Platelet Count 325 K/mm3 (150-400); RDW Coefficient Variation 14.2 % (11.7-14.2); RDW Standard Deviation 42.5 fL (35.1-46.3)
[2024-10-24 20:18] LABS: Alanine Aminotransfer (ALT/SGP 60.0 U/L (12-78); Albumin, Blood 2.6 g/dL (3.4-5.0); Albumin/Globulin Ratio 0.7 (0.8-1.8); Anion Gap 9.0 mmol/L (3-11); Aspartate Aminotrans (AST/SGOT 114.0 U/L (12-37); Bilirubin, Total 0.7 mg/dL (0.1-1.0); Blood Urea Nitrogen 17.0 mg/dL (8-24); CO2, Blood 26.0 mmol/L (21-32); Calcium, Blood 6.8 mg/dL (8.5-10.1); Chloride, Blood 97.0 mmol/L (98-108); Creatinine, Blood 0.6 mg/dL (0.60-1.20); Globulin, Blood 3.9 g/dL (2.2-4.0); Glucose, Blood 437.0 mg/dL (70-99); Magnesium, Blood 2.1 mg/dL (1.6-2.4); Potassium, Blood 5.3 mmol/L (3.5-5.5); Sodium, Blood 127.0 mmol/L (136-145); Total Protein, Blood 6.5 g/dL (6.4-8.2)
== END 2024-10-24 21:17 | disposition home or self-care (01) ==
LOC: ER 16:06
PROVIDERS: Student in an Organized Health Care Education/Training Program
DX: R42 Dizziness and giddiness (principal); S09.90XA Unspecified injury of head, initial encounter; R73.9 Hyperglycemia, unspecified; E86.0 Dehydration; I10 Essential (primary) hypertension; K21.9 Gastro-esophageal reflux disease without esophagitis; Z88.6 Allergy status to analgesic agent; Z88.0 Allergy status to penicillin; Z88.1 Allergy status to other antibiotic agents; Z79.84 Long term (current) use of oral hypoglycemic drugs; Z79.85 Long-term (current) use of injectable non-insulin antidiabetic drugs; Z79.899 Other long term (current) drug therapy; W18.30XA Fall on same level, unspecified, initial encounter
CPT/HCPCS: 70450; 80053; 83735; 84484; 85025; 93005; 93010; 99284-25; J7030

== ENCOUNTER → 2025-02-19 | Outpatient (CLI) | payer OTHER | END | disposition home or self-care (01) | LOC: LAB SHORT 14:19 → LAB 14:19 | DX: Z13.228 Encounter for screening for other metabolic disorders (principal) | CPT/HCPCS: 83735 ==